=== PATIENT | male | born 1965 | race Caucasian/White ===

== ENCOUNTER 2019-06-30 00:20 | Observation (INO) | payer SELFPAY ==
[2019-06-30] MEDS ORDERED: cloNIDine 0.1 MG TAB ONE (00:48)
[2019-06-30 01:02] LABS: #Eosinphils 0.2 thou/uL (0.0-0.7); #Lymphocytes 2.2 thou/uL (1.20-3.40); #Monocytes 0.9 thou/uL (0.11-0.59); %Basophils 0.5 % (0.0-1.0); %Eosinophils 1.9 % (0.0-10.0); %Lymphocytes 26.8 % (21.0-51.0); %Monocytes 10.4 % (0.0-10.0); %Neutrophils 60.4 % (42.0-75.0); Hemoglobin 15.2 g/dL (14.0-18.0); Mean Corpuscular HGB CONC 33.7 g/dL (32.0-36.0); Mean Platelet Volume 6.6 fL (7.4-10.4); Platelet Count 115 thou/uL (130-400); RBC Distribution Width 13.4 % (11.5-14.5); Red Blood Cell (RBC) Count 4.46 mill/uL (4.70-6.10); White Blood Cell (WBC) Count 8.2 thou/uL (4.8-10.8)
[2019-06-30 01:13] LABS: ALT (SGPT) 55 U/L (8-55); AST (SGOT) 123 U/L (5-34); Albumin 3.5 g/dL (3.5-5.0); Alkaline Phosphatase 225 U/L (40-150); Anion Gap 13 mmol/L (10-20); BUN (Urea Nitrogen) 4 mg/dL (8.4-25.7); Bilirubin, Total 1.2 mg/dL (0.2-1.2); CK (CPK) 252 U/L (30-200); Calc. Creatinine Clearance 0 mL/min (70-130); Carbon Dioxide 24 mmol/L (22-29); Chloride 101 mmol/L (98-107); Estimated GFR-MDRD 88; Globulin 5.2 g/dL (2.4-3.5); Glucose 208 mg/dL (70-105); Potassium 3.5 mmol/L (3.5-5.1); Protein, Total 8.7 g/dL (6.0-8.3); Sodium 134 mmol/L (136-145)
[2019-06-30] MEDS ORDERED: hydrALAZINE 20 MG/ML VIAL ONE (01:42)
[2019-06-30] MEDS ORDERED: Lorazepam 2 MG/ML VIAL ONE (02:03)
--- NOTE | 2019-06-30 02:45 | PDOC.FPRHP ---
- History of Present Illness Chief Complaint: syncope History of Present Illness: Pt reports having episode of syncope today around 22:30. He was walking down the wells and passed out. Woke up on the ground. [place] dizzy and "something wasn' t right" prior to fall. + lightheaded. No N/V. Pt reports passing out previously 6 months ago, similar to this episode. Denies REED. Sometimes wakes up w/ REED in back of neck. Otherwise, he states being here because his blood pressure was high. He has been out of BP meds for past 6 months due to unemployment. Pt is heavy, every day drinker and his last drink was at 18:00. ED Course: Pt arrived to ED w/ BP 195/110. Given clonidine and hydralazine and BP was 162/ 92. Given 2L NS for tachycardia Ativan for anxiety. - Allergies/Adverse Reactions Allergies Allergy/AdvReac Type Severity Reaction Status Date / Time No Known Drug Allergies Allergy Verified 06/30/19 04:33 - Home Medications Medication Instructions Recorded Confirmed Type Atenolol 100 mg PO DAILY #30 tablet 06/30/19 Rx Lisinopril [Zestril] 10 mg PO DAILY #30 tab 06/30/19 Rx Comments: Normally takes: - Atenolol - Clonidine - Anti-depressants: stopped taking them 5 years ago. Stopped taking them because he started feeling better. - History PMHx - HTN - Eczema - Hx of pancreatitis 2008 - High cholesterol - Alcohol use disorder PSHx: - Pseudocyst removed via ex lap FHx: - Dad: stroke, HTN, psoriasis - Diabetes in extended family - Brain tumor: aunt - Uncle: "hardening of the lungs" Social: - Lives at home w/ fiance. 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 - Denies smoking. Chews tobacco. 1 can every 2 days, since age 13 - Alcohol: 8 beers per day, since age 18 - Drugs: denies - Review of Systems General: reports: weight/appetite/sleep changes (put on 20 lbs. recently, gets little sleep because of anxiety), other (subjective fever) Eyes: reports: vision changes (worse, wears reading glasses) ENT: reports: nasal congestion, other (nose bleeds last week) Respiratory: reports: congestion (all year long). denies: cough, shortness of breath Cardiovascular: reports: palpitation (occurs couple times per week, more since running out of BP). denies: chest pain, orthopnea Gastrointestinal: reports: constipation. denies: nausea, vomiting, diarrhea, GI bleeding Genitourinary: denies: dysuria, polyuria Skin: reports: rashes (eczema on lower limbs and back), jaundice (people say he has been yellow) Musculoskeletal: denies: pain Neurological: reports: syncope. denies: numbness, seizure Psychological: reports: anxiety, depression - Vital signs BP: 176/108 HR: 128 RR: 17 Tmax: 98.6 Pox: 98% on RA - Physical Exam Constitutional: NAD, awake, alert and oriented (times 4) HEENT: normocephalic and atraumatic, PERRLA, EOMI, no scleral icterus, grossly normal hearing, MMM, oropharynx clear -HEENT: conjunctiva injected b/l Neck: supple, trachea midline, no LAD -Neck: strong b/l carotid pulse Chest: no-tender to palpation Heart: normal S1/S2 (tachycardic), no murmurs/rubs/gallops, no edema Lungs: CTAB, no respiratory distress, no wheezing Abdomen: soft, non-tender, bowel sounds present (midline ex lap scar) Musculoskeletal: normal structure, ROM grossly normal Neurological: no focal deficit, CN II-XII intact, normal sensation -Skin: mild jaundice of upper extremities; very red in the face/neck/and shoulders, blanches; eczematous plaques possibly representing plaque psoriasis on lateral lower extremities b/l and knees b/l w/ excoriations from pt scratching -Heme/Lymphatic: small amount of petechiae over shins b/l Psychiatric: normal mood and affect, intact recent and remote memory FMR H&P: Results - Labs Result Diagrams: 06/30/19 00:47 06/30/19 07:04 Lab results: WBC 8.2 thou/uL (4.8-10.8) 06/30/19 00:47 Hgb 15.2 g/dL (14.0-18.0) 06/30/19 00:47 Hct 45.0 % (42.0-52.0) 06/30/19 00:47 MCV 101.0 fL (78.0-98.0) H 06/30/19 00:47 Plt Count 115 thou/uL (130-400) L 06/30/19 00:47 Neutrophils % 60.4 % (42.0-75.0) 06/30/19 00:47 Sodium 134 mmol/L (136-145) L 06/30/19 00:47 Potassium 3.5 mmol/L (3.5-5.1) 06/30/19 00:47 Chloride 101 mmol/L (98-107) 06/30/19 00:47 Carbon Dioxide 24 mmol/L (22-29) 06/30/19 00:47 BUN 4 mg/dL (8.4-25.7) L 06/30/19 00:47 Creatinine 0.90 mg/dL (0.7-1.3) 06/30/19 00:47 Glucose 208 mg/dL (70-105) H 06/30/19 00:47 Calcium 9.0 mg/dL (7.8-10.44) 06/30/19 00:47 Total Bilirubin 1.2 mg/dL (0.2-1.2) 06/30/19 00:47 AST 123 U/L (5-34) H 06/30/19 00:47 ALT 55 U/L (8-55) 06/30/19 00:47 Alkaline Phosphatase 225 U/L (40-150) H 06/30/19 00:47 Creatine Kinase 252 U/L (30-200) H 06/30/19 00:47 Serum Total Protein 8.7 g/dL (6.0-8.3) H 06/30/19 00:47 Albumin 3.5 g/dL (3.5-5.0) 06/30/19 00:47 - EKG Interpretation EKG: sinus tach - Radiology Interpretation Chest x-ray Status: image reviewed by me (neg to my eye) CT scan - head Status: image reviewed by me (neg to my eye) FMR H&P: A/P - Problem List (1) Syncope and collapse Current Visit: Yes Status: Acute Code(s): R55 - SYNCOPE AND COLLAPSE (2) Hypertensive urgency Current Visit: Yes Status: Acute Code(s): I16.0 - HYPERTENSIVE URGENCY (3) Tachycardia Current Visit: Yes Status: Acute Code(s): R00.0 - TACHYCARDIA, UNSPECIFIED (4) Depression with anxiety Current Visit: Yes Status: Chronic Code(s): F41.8 - OTHER SPECIFIED ANXIETY DISORDERS (5) Alcohol use disorder Current Visit: Yes Status: Chronic Code(s): RBL0733 - (6) Tobacco use disorder Current Visit: Yes Status: Chronic Code(s): F17.200 - NICOTINE DEPENDENCE, UNSPECIFIED, UNCOMPLICATED - Plan 53 to male admitted to telemetry for: Syncope: - Unclear as to cause of pt's syncope - Will pursue full syncope workup, especially since pt has not seen doctor in 6 months - Head CT w/o contrast - Carotid dopplers - ECHO - Orthostatic vital signs - Will rehydrate pt with banana bag bolus and MIVF following - Pt noted to have high glucose in serum and spilling glucose in urine. Will check A1C for possible new diabetes to assess if this might have contributed to his syncope. Hypertensive urgency 2/2 to hx of HTN and not taking medications recently: - pending final Head CT read to rule out head bleed or acute process, we will start HTN meds - pt very tachycardic so we will monitor on continuous telemetry - Initial troponin was 0.023. Will trend x2 - Initial CPK was 252, will trend. Alcohol use disorder Tobacco use disorder, chewing tobacco: - ASE protocol, last drink on 06/29 at 18:00 per pt - Ativan prn IV & PO based on ASE protocol - EtOH on admission 224. Depression & anxiety: - pt has been untreated but previously diagnosed w/ depression - we will monitor his mental status - case mgmt for Rx help on discharge - hope to have him follow up w/ PCP outpatient for chronic mgmt of depression Code: FULL VTE PPx: SCDs GI PPx: none Fluids: banana bag infusing Micky Barnes MD PGY1 Disposition/LOS: admit to telemetry as observation FMR H&P: Upper Level - Plan Date/Time: 06/30/19 0245 Syncope-ddx: orthostatic, cardiogenic, vasovagal, neurogenic -s/p syncopal episode and fall while intoxicated. -Will order a head CT to rule out a brain bleed. -suspect orthostatic vs cardiogenic -Will order orthostatics, and monitor on tele -am labs including cbc, bmp, mag, phosph -EKG showed sinus tach but no ischemic changes. Would consider an echo in the am as well to further evaluate for a cardiogenic etiology -does not appear to be a vasovagal episode, seizure related, or cva as there are no focal deficits Acute alcohol intoxication-will monitor on obs tele. ase protocol and valium/ ativan prn withdrawal sx. d/t fall, hd ct ordered, and banana bag ordered, but no current signs of wernike's encephalopathy at this time. UDS ordered Hypertensive Urgency -Hd CT w/o contrast pending -prn labetalol, hydralazine ordered Indeterminate troponins -episode of syncope, EKG with LAD, possible LAE and LVH -Will repeat an EKG since the second troponin increased -if third becomes high, would start theraputic lovenox -heart score of 5 -will order a stress test, NPO currently HTN -was on clonidine and atenolol in the past -would consider starting lisinopril -labetalol prn onboard currently Sinus tachycardia -suspect 2/2 hypovolemia, will bolus with a banana bag, followed by mIVF and monitor closely -consider CTA chest if no improvement, no LE swelling Hyperglycemia -hba1c ordered Transaminitis, elevated alk phosph -Hep c, HIV, RPR -ruq us Maite Henning MD, PGY-3 Addendum - Attending - Attending Attestation Date/Time: 06/30/19 1020 I personally evaluated the patient and discussed the management with Dr. Barnes and Milady. H&P repeated by me. I agree with the History, Examination, Assessment and Plan documented above with any addition or exceptions noted below. Mr. Sampson is a 53 y/o male with PMH of hypertension and alcohol abuse who has been off medications for 3-6 months due to loss of insurance presents when because he was found down by his son. Patient states he drank his normal amount of 8 beers yesterday (between noon and 6 pm). He was dizzy (described as feeling lightheaded-no vertigo). Denies chest pain, palpitations, dyspnea. Unsure of what happened. This am he states he feels like his normal self and wants to go home. HR 115-130, BP 170-180/90-100, O2 sat normal Heart- tachycardia, normal s1/s2, no m,g,r and no carotid bruits Abd- soft nt/nd Ext- no c/c/e EKG- sinus tachycardia with mild LAE, no ST changes Imaging reviewed. Hypertensive urgency- secondary to non-compliance- will restart his home atenolol and add lisinopril. Avoid clonidine secondary to rebound hypertension Sinus tachycardia- differential is hyperthyroidism, alcohol withdrawal, dehydration, or his normal baseline. Restart atenolol and call PCP to check on baseline hr. Continue IVF Questionable syncopal episode- most likely secondary to alcohol intoxication. CT head neg and carotid doppler with some plaque but no stenosis. Will also check ECHO. Tele shows sinus tachycardia without arrhythmia Elevated (indeterminate) troponin secondary to demand from hypertension and tachycardia- no EKG changes to suggest ischemia and patient without symptoms. Will trend one additional troponin. Alcohol abuse with acute intoxication- CM consult to help with outpatient resources. Cessation discussed with patient and he is not interested at this time. Depression/anxiety- will need outpatient follow-up to restart medications. Reevaluation this pm to see if HR and bp improved and stable for discharge.
[2019-06-30] MEDS ORDERED: Lorazepam 2 MG/ML VIAL SLOW IVP PRN (03:45)
[2019-06-30] MEDS ORDERED: Lorazepam 1 MG TAB PO PRN (03:46)
[2019-06-30 04:02] LABS: Bilirubin Negative (Negative); Blood, Urine Negative (Negative); Clarity Clear (Clear); Glucose, Urine (Dipstick) 150 mg/dL (Negative); Leukocyte Negative Leu/uL (Negative); Nitrite Negative (Negative); Protein, Urine (Dipstick) Negative (Neg-Trace); Urobilinogen Normal mg/dL (Less than 2)
[2019-06-30 04:04] LABS: Amphetamine Not Detected (NotDetected); Benzodiazepine Screen Not Detected (NotDetected); Cocaine Metabolite Screen Not Detected (NotDetected); Medtox Reader # READER 4; Methadone Not Detected (NotDetected); Methamphetamine Not Detected (NotDetected); Opiate Screen Not Detected (NotDetected); Phencyclidine (PCP) Not Detected (NotDetected); THC/Cannabinoid Screen Not Detected (NotDetected); Tricyclic Screen Not Detected (NotDetected)
[2019-06-30 04:05] LABS: Barbiturates Screen Not Detected (NotDetected); Medtox Control Line Valid? VALID (VALID); Oxycodone Screen Not Detected (NotDetected)
[2019-06-30 04:12] LABS: Troponin I 0.036 ng/mL (< 0.028)
[2019-06-30] MEDS ORDERED: Sodium Chloride 0.9% 1,000 ML IV SCH (04:15)
[2019-06-30] MEDS ORDERED: Multivitamins, Adult 10 ML, Folic Acid 1 MG, Thiamine HCl 100 MG in Dextrose 5 %-0.45 %... IV SCH ×2 (04:30→06:00)
[2019-06-30 04:43] VITALS: BMI 22.8
[2019-06-30 04:56] LABS: Magnesium 1.7 mg/dL (1.6-2.6); Phosphorus 2.4 mg/dL (2.3-4.7)
[2019-06-30] MEDS ORDERED: Labetalol HCl 100 MG/20 ML VIAL SLOW IVP PRN (04:59)
[2019-06-30] MEDS ORDERED: Diazepam 5 MG TAB PO SCH (05:00)
[2019-06-30] MEDS ORDERED: hydrALAZINE 20 MG/ML VIAL SLOW IVP PRN (05:01)
[2019-06-30] MEDS ORDERED: Diazepam 5 MG TAB PO PRN ×2 (05:17)
[2019-06-30 06:29] LABS: CKMB 3.2 ng/mL (0-6.6)
[2019-06-30 06:36] LABS: Hemoglobin A1c 5.7 % (4.0-6.0)
[2019-06-30] MEDS ORDERED: cloNIDine 0.1 MG TAB PO PRN (07:59)
[2019-06-30 08:00] LABS: Troponin I 0.042 ng/mL (< 0.028)
--- NOTE | 2019-06-30 08:05 | RAD ---
PORTABLE CHEST: INDICATION: Hypertension and tachycardia. Change in mental status with dizziness. FINDINGS: Lungs are clear. Heart and mediastinum appear normal. Vasculature is normal. IMPRESSION: Negative chest. POS: [facility]
--- NOTE | 2019-06-30 08:11 | CT ---
PRELIMINARY REPORT/[facility]/EMERGENCY AFTER HOURS PROCEDURE: PROCEDURE INFORMATION: Exam: CT Head Without Contrast Exam date and time: 06/30/2019 3:43 AM Clinical history: 53 years old, male; Dizziness; Patient HX: 53m presenting for evaluation of high bl ood pressure and tachycardia. PT reports his son found him on the ground at home. He reports he is un sure how he got there. PT reports having intermittent dizzy episodes over the last month TECHNIQUE: Imaging protocol: Computed tomography of the head without contrast. COMPARISON: No relevant prior studies available. FINDINGS: Brain: No hemorrhage. No mass effect. Patchy whitte matter hypodensities are nonspecific but may be s een in small vessel chronic ischemic changes. Ventricles: No ventriculomegaly. Bones/joints: No acute fracture. Sinuses: Scattered paranasal sinuses mucosal thickenning. Mastoid air cells: Visualized mastoid air cells are well aerated. Soft tissues: Unremarkable. IMPRESSION: No acute intracranial abnormality. Thank you for allowing us to participate in the care of your patient. Dictated and Authenticated by: Wendy Calixto MD 06/30/2019 4:09 AM Central Time ([place] & [place]) FINAL REPORT EMERGENCY AFTER HOURS CT BRAIN: Date: 06/30/19 FINDINGS/IMPRESSION: Final report is in agreement with the above provided preliminary interpretation from [facility]. No acute intracranial hemorrhage or mass effect. Chronic microvascular ischemic disease. POS: [facility]
[2019-06-30 09:04] LABS: ALT (SGPT) 48 U/L (8-55); AST (SGOT) 110 U/L (5-34); Albumin 3.3 g/dL (3.5-5.0); Alkaline Phosphatase 199 U/L (40-150); Anion Gap 14 mmol/L (10-20); BUN (Urea Nitrogen) 4 mg/dL (8.4-25.7); Bilirubin, Total 1.1 mg/dL (0.2-1.2); Calc. Creatinine Clearance 121 mL/min (70-130); Calcium 8.6 mg/dL (7.8-10.44); Carbon Dioxide 21 mmol/L (22-29); Chloride 102 mmol/L (98-107); Estimated GFR-MDRD Greater than 90; Globulin 4.7 g/dL (2.4-3.5); Glucose 173 mg/dL (70-105); Potassium 3.4 mmol/L (3.5-5.1); Sodium 134 mmol/L (136-145)
[2019-06-30] MEDS ORDERED: Potassium Chloride 20 MEQ TAB PO SCH (09:30)
[2019-06-30] MEDS ORDERED: Lisinopril 10 MG TAB PO SCH (10:15)
[2019-06-30] MEDS ORDERED: cloNIDine 0.1 MG TAB PO SCH ×2 (10:15→21:00)
--- NOTE | 2019-06-30 10:17 | ULT ---
CAROTID DOPPLER: Ultrasound Doppler study is performed of the extracranial carotid arteries. Color Doppler with spect ral analysis and velocity recordings obtained. INDICATION: Syncope. FINDINGS: Ultrasound images show echogenic plaque in both bulbs and proximal ICAs. Velocity recordings show no evidence of increased velocity in either internal carotid artery. Verteb ral arteries show antegrade flow. IMPRESSION: 1. Mild to moderate echogenic plaque with intimal wall thickening measured with ultrasound. 2. No evidence of hemodynamically significant stenosis identified in either internal carotid artery. POS: [place]
[2019-06-30] MEDS: Sodium Chloride 0.9% 1,000 ML IV SCH ×2 (10:30→18:00)
[2019-06-30] MEDS ORDERED: Atenolol 25 MG TAB PO SCH (10:30)
[2019-06-30 16:03] VITALS: BP 150/83; TEMP 100
[2019-07-01] MEDS ORDERED: Atenolol 50 MG TAB PO SCH (09:00)
[2019-07-01] MEDS ORDERED: Diazepam 5 MG TAB PO SCH (09:00)
[2019-07-01] MEDS ORDERED: Lisinopril 10 MG TAB PO SCH (09:00)
--- NOTE | 2019-07-01 13:38 | EKG ---
Test Reason : EMERGENCY EXAM Blood Pressure : / mmHG Vent. Rate : 122 BPM Atrial Rate : 122 BPM P-R Int : 126 ms QRS Dur : 092 ms QT Int : 324 ms P-R-T Axes : 076 -13 052 degrees QTc Int : 461 ms Sinus tachycardia Otherwise normal ECG Confirmed by GANESH PINO ([id number]), senior technical editor JONAH MILLER ([id number]) on 07/01/2019 1:37:47 PM Referred By: Confirmed By:GANESH PINO
--- NOTE | 2019-07-02 22:32 | DIS ---
DATE OF ADMISSION: 06/30/2019 DATE OF DISCHARGE: 06/30/2019 RESIDENT: Bryan Agrawal MD. CONSULTS: None. PROCEDURES: 1. On 06/30/2019, chest x-ray, impression, negative chest x-ray. 2. On 06/30/2019, brain CT unremarkable. 3. On 06/30/2019, carotid Doppler study, [id number] echogenic plaque with intimal wall thickening measured with ultrasound. No evidence of hemodynamically significant stenosis identified in either carotid artery. 4. On 06/30/2019, echocardiogram, impression, ejection fraction is 60% to 65%, normal right ventricular size and function. Left atrium is mildly dilated. Normal right atrium size. Trace mitral regurgitation is present. Structurally normal aortic valve. Trace tricuspid regurgitation. Mild pulmonic regurgitation is present. DISCHARGE MEDICATIONS: 1. Lisinopril 10 mg p.o. daily. 2. Atenolol 100 mg p.o. daily. Discontinued medications, clonidine 0.1 mg p.o. b.i.d. p.r.n. PRIMARY DIAGNOSIS: Syncope secondary to alcohol intoxication. SECONDARY DIAGNOSES: Hypertensive urgency, hypertension, alcohol use disorder, tobacco use, depression, anxiety. HISTORY OF PRESENT ILLNESS AND HOSPITAL COURSE: This is a 53-year-old male, with history of alcohol abuse, who presented to the ER after a syncopal episode while intoxicated on alcohol. The patient was admitted for workup of syncope and to rule out other potential cardiogenic or neurogenic causes. Imaging studies were done as listed above, which were all negative and the patient was discharged home, was counselled to see primary care physician about discontinuing his alcohol use. Hospital stay was also significant for hypertensive urgency secondary to medication noncompliance as the patient cannot afford medications. Home atenolol was restarted and the patient was also placed on lisinopril and taken off home clonidine. Blood pressures were controlled as was his heart rate. Prescriptions were sent to [facility] as they are on the 4 dollar list and the patient was discharged home. DISPOSITION: Stable. DISCHARGE INSTRUCTIONS: 1. Location, home. 2. Diet; low-sodium, healthy heart. 3. Activity, as tolerated. 4. Follow up with Dr. Downey in 7 days. Job ID: [id number]
== END 2019-06-30 17:56 | disposition home or self-care (01) ==
LOC: ERS 00:20 → 2SW 02:50
PROVIDERS: ADMIT Family Medicine; ATTEND Family Medicine
DX: F10.129 Alcohol abuse with intoxication, unspecified (principal); R55 Syncope and collapse; I16.0 Hypertensive urgency; I10 Essential (primary) hypertension; E78.00 Pure hypercholesterolemia, unspecified; F17.220 Nicotine dependence, chewing tobacco, uncomplicated; F41.8 Other specified anxiety disorders; F32.9 Major depressive disorder, single episode, unspecified; R73.9 Hyperglycemia, unspecified; R74.0 Nonspecific elevation of levels of transaminase and lactic acid dehydrogenase [LDH]; R00.0 Tachycardia, unspecified; Z79.899 Other long term (current) drug therapy; Z91.14 Patient's other noncompliance with medication regimen
CPT/HCPCS: 36415; 36416; 70450; 71045; 80053; 80306; 80307; 81003; 82550; 82553; 83036; 83735; 84100; 84443; 84484; 85025; 93005; 93010; 93306; 93880; 96361; 96365; 96366; 96374; 96375; 96376; G0378; J0360; J2060; J3411; J7042

== ENCOUNTER 2020-05-06 20:17 | Inpatient (IN) | payer OTHER, SELFPAY ==
[2020-05-06 21:49] LABS: Band 1 % (5-11); Hemoglobin 14.7 g/dL (14.0-18.0); Lymphocytes 22 % (21-51); MDiff Complete? YES; Mean Corpuscular HGB CONC 32.7 g/dL (32.0-36.0); Mean Corpuscular Hemoglobin 33.5 pg (27.0-31.0); Mean Platelet Volume 6.3 fL (7.4-10.4); Monocytes 17 % (0-10); Neutrophil 60 % (42-75); Platelet Count 144 thou/uL (130-400); Platelet Morphology Comment Appears Adequate; RBC Distribution Width 13.1 % (11.5-14.5); Red Blood Cell (RBC) Count 4.38 mill/uL (4.70-6.10); White Blood Cell (WBC) Count 8.6 thou/uL (4.8-10.8)
[2020-05-06 22:03] LABS: Bacteria/HPF None Seen HPF (None Seen); Bilirubin Negative (Negative); Blood, Urine Trace (Negative); Clarity Clear (Clear); Glucose, Urine (Dipstick) Normal (Negative); Ketone, Urine 10 mg/dL (Negative); Leukocyte Negative Leu/uL (Negative); Nitrite Negative (Negative); Protein, Urine (Dipstick) 20 mg/dL (Neg-Trace); RBC/HPF 0-3 HPF (0-3); Squamous Epithelial 0-3 HPF (0-3); Urobilinogen Normal mg/dL (Less than 2); WBC/HPF 0-3 HPF (0-3)
[2020-05-06 22:05] LABS: ALT (SGPT) 85 U/L (8-55); AST (SGOT) 112 U/L (5-34); Albumin 3.7 g/dL (3.5-5.0); Alkaline Phosphatase 180 U/L (40-110); Anion Gap 15 mmol/L (10-20); BUN (Urea Nitrogen) 17 mg/dL (8.4-25.7); Bilirubin, Total 1.2 mg/dL (0.2-1.2); Calc. Creatinine Clearance 0 mL/min (70-130); Carbon Dioxide 28 mmol/L (22-29); Chloride 99 mmol/L (98-107); Estimated GFR-MDRD Greater than 90; Globulin 4.7 g/dL (2.4-3.5); Glucose 133 mg/dL (70-105); Lipase 21 U/L (8-78); Potassium 3.6 mmol/L (3.5-5.1); Protein, Total 8.4 g/dL (6.0-8.3); Sodium 138 mmol/L (136-145)
--- NOTE | 2020-05-06 23:25 | PDOC.FPRHP ---
- History of Present Illness Chief Complaint: hematemesis History of Present Illness: Patient is a 54 yo male who presents to the ED due to hematemsis that started around 0800 yesterday morning. Patient notes he vomited bloody emesis ( sometimes red and sometimes black) 5 times throughout the day, noting he had some accompanying light-headedness, and generalized weakness later in the day. He also notes melana during the day, with normal BMs, noting bright red blood on the toilet paper when he wiped. Patient states that he has a hx of ETOH abuse , noting he has been drinking 8 beers/day x 30 years, noting he drank 8 beers the previous day. He notes he had a similar experience with hematemesis 10 years ago and was dx with pancreatitis and had a pseudocyst the size of a fist surgically removed. Patient endorses chills but denies fever, CP, SOB, abdominal pain. ED Course: On arrival to the ED he was noted to be tachy in the 120s and hypertensive. His workup was notable for slightly elevated LFTs and a positive FOBT. He was given 40mg IV protonix, 4mg IV Zofran & 1L of NS before moving to the floor - Allergies/Adverse Reactions Allergies Allergy/AdvReac Type Severity Reaction Status Date / Time No Known Drug Allergies Allergy Verified 06/30/19 04:33 - Home Medications Medication Instructions Recorded Confirmed Type Atenolol 100 mg PO DAILY #30 tablet 06/30/19 Rx Lisinopril [Zestril] 10 mg PO DAILY #30 tab 06/30/19 Rx Pantoprazole [Protonix] 40 mg PO BID 30 Days #60 tab 05/08/20 Rx - History PMHx: Hx of Pancreatitis w/ Pseudocyst removal, HLD, HTN, ETOH abuse PSHx: Pseudocyst removal FHx: noncontributory Social: drinks 8 beers/day x 30 years, no smoking or illicit recreational drugs - Review of Systems General: reports: other (denies fever, + chills). denies: weight/appetite/ sleep changes Eyes: denies: eye pain, vision changes ENT: denies: nasal congestion, rhinorrhea Respiratory: denies: cough, shortness of breath Cardiovascular: denies: chest pain, edema Gastrointestinal: reports: nausea, vomiting, GI bleeding (hematemesis, melena). denies: diarrhea, constipation Genitourinary: denies: incontinence, dysuria Skin: denies: rashes, lesions Musculoskeletal: denies: pain, tenderness Neurological: denies: numbness, syncope Psychological: denies: anxiety, depression - Vital signs BP: 165/97, Pulse: 94, Resp: 14, Temp: 98.9 (Oral), O2 sat: 98 on (Room Air), Wt : 64.41kg - Physical Exam Constitutional: NAD, awake, alert and oriented HEENT: normocephalic and atraumatic, other (conjunctival injection b/l) Neck: supple, FROM Chest: no-tender to palpation Heart: no murmurs/rubs/gallops, other (tachycardic) Lungs: CTAB, no respiratory distress Abdomen: soft, non-tender, bowel sounds present Musculoskeletal: normal structure, normal tone Neurological: normal sensation, other (tremulous, nystagmus on exam) Skin: no rash/lesions, good turgor Heme/Lymphatic: no unusual bruising or bleeding, no purpura Psychiatric: normal mood and affect, good judgment and insight, intact recent and remote memory FMR H&P: Results - Labs Result Diagrams: 05/08/20 07:50 05/08/20 07:50 Lab results: WBC 8.6 thou/uL (4.8-10.8) 05/06/20 21:28 Hgb 14.7 g/dL (14.0-18.0) 05/06/20 21:28 Hct 44.8 % (42.0-52.0) 05/06/20 21:28 MCV 102.0 fL (78.0-98.0) H 05/06/20 21:28 Plt Count 144 thou/uL (130-400) 05/06/20 21:28 Band Neuts % (Manual) 1 % (5-11) L 05/06/20 21:28 Sodium 138 mmol/L (136-145) 05/06/20 21:28 Potassium 3.6 mmol/L (3.5-5.1) 05/06/20 21:28 Chloride 99 mmol/L (98-107) 05/06/20 21:28 Carbon Dioxide 28 mmol/L (22-29) 05/06/20 21:28 BUN 17 mg/dL (8.4-25.7) 05/06/20 21: Creatinine 0.70 mg/dL (0.7-1.3) 05/06/20 21: Glucose 133 mg/dL (70-105) H 05/06/20 21:28 Calcium 9.0 mg/dL (7.8-10.44) 05/06/20 21: Total Bilirubin 1.2 mg/dL (0.2-1.2) 05/06/20 21:28 AST 112 U/L (5-34) H 05/06/20 21:28 ALT 85 U/L (8-55) H 05/06/20 21:28 Alkaline Phosphatase 180 U/L (40-110) H 05/06/20 21: Serum Total Protein 8.4 g/dL (6.0-8.3) H 05/06/20 21: Albumin 3.7 g/dL (3.5-5.0) 05/06/20 21: Lipase 21 U/L (8-78) 05/06/20 21:28 Urine Ketones 10 mg/dL (Negative) A 05/06/20 21:07 Urine Blood Trace (Negative) A 05/06/20 21:07 Urine Nitrite Negative (Negative) 05/06/20 21:07 Ur Leukocyte Esterase Negative Sobia/uL (Negative) 05/06/20 21:07 Urine RBC 0-3 HPF (0-3) 05/06/20 21:07 Urine WBC 0-3 HPF (0-3) 05/06/20 21:07 Ur Squamous Epith Cells 0-3 HPF (0-3) 05/06/20 21:07 Urine Bacteria None Seen HPF (None Seen) 05/06/20 21:07 - EKG Interpretation EKG: None performed or found. FMR H&P: A/P - Problem List (1) Hematemesis Status: Acute Code(s): K92.0 - HEMATEMESIS (2) HTN (hypertension) Status: Acute Code(s): I10 - ESSENTIAL (PRIMARY) HYPERTENSION (3) Melena Status: Acute Code(s): K92.1 - MELENA (4) Alcohol use disorder Status: Chronic Code(s): HAF5788 - - Plan 1. Hematemesis likely 2/2 ETOH abuse Hb 14.7, amylase/lipase wnl Received 1 bolus NS and 40mg IV push pantoprazole in ED - NPO in anticipation of a likely endoscopic evaluation with GI tomorrow - will start LR @125 - will schedule 40mg IV push pantoprazole BID in the am - cardiac monitoring - q4hr vitals - morning CBC 2. Melena, likely d/t upper GI bleed - see above, started fluids and PPI - will monitor H/H 3. ETOH Abuse - ASE protocol initiated - serum ETOH level - diazepam q6hr prn for withdrawal sxs - morning CMP 4. HTN - labetalol prn for SBP >180, patient is NPO - q4hr vitals 5. Hx Pancreatitis with pseudocyst amylase and lipase wnl - morning CMP - will continue to monitor Dispo: inpatient medical LOS expected at least 1-2 days DVT PPx: none d/t bleed Code: Full PCP: Shayan Castelan have discussed this patient with Dr. Sharma FMR H&P: Upper Level - Plan Date/Time: 05/06/205 IDebra, have evaluated this patient and agree with findings/plan as outlined by chemical engineering intern resident. Pertinent changes/additions are listed here. 54YOM with a PMH notable for HTN and heavy QD EtOH abuse who presented to the ED due to reported hematemesis and melanotic stool at home that started the AM of the date of presentation. Per the patient shortly after waking up in the AM he began to have episodes of bloody vomitus, some of which were bright red and others which were coffee ground. He reported ~5 episodes over the course of the day [employer]. In addition, he reported multiple black BMs that also began earlier in the day. He denied any associated abdominal pain, fever/chills, chest pain or SOB. On arrival to the ED he was noted to be tachy in the 120s and hypertensive. His workup was notable for slightly elevated LFTs and a positive FOBT. He was given 40mg IV protonix, 4mg IV Zofran & 1L of NS before moving to the floor. On exam his tachycardia had slightly improved but he was tremulous, especially with movement. He also had horizontal nystagmus but his abdomen was non-TTP. He was therefore admitted for a suspected acute upper GI bleed likely 2 /2 chronic heavy EtOH use. For his GI bleed, IV protonix was continued and he was kept NPO in anticipation of a likely endoscopic evaluation with GI tomorrow. He was continued on mIVFs while NPO. Regarding his EtOH use, a serum EtOH level was ordered but he was also started on ASE protocol and given 5mg IV diazepam before being moved to the floor and this was continued PRN Q6H for withdrawal symptoms. Regarding his HTN, PRN labetalol was added to be given for SBP>180 while NPO. Anticipated LOS > 2 midnights pending clinical course. Addendum - Attending - Attending Attestation Date/Time: 05/06/20 1833 I personally evaluated the patient and discussed the management with Dr. Perkins and Dr. Hartman I agree with the History, Examination, Assessment and Plan documented above with any addition or exceptions noted below. 54 yo male with current alcohol abuse presents with hematemesis and melena. Associated with epigastric pain and nausea. Last drink yesterday. Now with diaphoresis, anxiety, and shaking. CT with concern for petic ulcer disease. - Admit to tele due to VS instability. H&H reassuring. No evidence of current bleeding. GI in AM. NPO. Start IVFs. Start PPI drip. Add carafate overnight to help with current pain. Unsure NSAID use but denies continuous. - 8 drinks per day reported. Start valium leandro. Monitor closely. - Concern also present for gallbladder disease. RUQ us ordered. Add antibiotics as indicated. Gen surg as needed. - Monitor chronic conditions and adjust home meds as indicated. Renita
[2020-05-06] MEDS ORDERED: Pantoprazole 40 MG VIAL ONE (23:39)
[2020-05-06] MEDS ORDERED: Ondansetron PF 4 MG/2 ML Vial ONE (23:39)
[2020-05-07] MEDS ORDERED: Ondansetron ODT 4 MG TAB PO PRN (00:11)
[2020-05-07] MEDS ORDERED: Diazepam 5 MG TAB ONE (00:35)
[2020-05-07] MEDS ORDERED: Sodium Chloride 0.9% (PF) 10 ML VIAL FS PRN (00:43)
[2020-05-07] MEDS ORDERED: Diazepam 10 MG/2 ML SYRINGE IVP SCH ×3 (01:00→13:00)
[2020-05-07] MEDS ORDERED: Thiamine HCl 200 MG/2 ML VIAL IM SCH ×2 (01:00→14:45)
[2020-05-07] MEDS: Lactated Ringer's 1,000 ML IV SCH ×3 (03:54→20:14)
[2020-05-07 04:05] VITALS: BMI 19.9
[2020-05-07] MEDS ORDERED: Labetalol HCl 100 MG/20 ML VIAL SLOW IVP PRN (05:06)
[2020-05-07 05:23] LABS: ALT (SGPT) 64 U/L (8-55); AST (SGOT) 83 U/L (5-34); Albumin 3.1 g/dL (3.5-5.0); Alkaline Phosphatase 138 U/L (40-110); Anion Gap 11 mmol/L (10-20); BUN (Urea Nitrogen) 14 mg/dL (8.4-25.7); Bilirubin, Total 1.1 mg/dL (0.2-1.2); Calc. Creatinine Clearance 106 mL/min (70-130); Calcium 8.5 mg/dL (7.8-10.44); Carbon Dioxide 27 mmol/L (22-29); Chloride 105 mmol/L (98-107); Estimated GFR-MDRD Greater than 90; Globulin 3.7 g/dL (2.4-3.5); Glucose 116 mg/dL (70-105); Potassium 4.1 mmol/L (3.5-5.1); Protein, Total 6.8 g/dL (6.0-8.3); Sodium 139 mmol/L (136-145)
[2020-05-07] MEDS: Diazepam 10 MG/2 ML SYRINGE IVP SCH ×4 (06:01→21:25)
[2020-05-07 06:36] LABS: #Lymphocytes 1.3 thou/uL (1.20-3.40); #Monocytes 0.9 thou/uL (0.11-0.59); #Neutrophils 5.1 thou/uL (1.40-6.50); %Basophils 0.6 % (0.0-1.0); %Eosinophils 0.6 % (0.0-10.0); %Lymphocytes 17.8 % (21.0-51.0); %Monocytes 12.7 % (0.0-10.0); %Neutrophils 68.3 % (42.0-75.0); Mean Corpuscular HGB CONC 32.3 g/dL (32.0-36.0); Mean Corpuscular Hemoglobin 32.9 pg (27.0-31.0); Mean Platelet Volume 6.5 fL (7.4-10.4); Platelet Count 102 thou/uL (130-400); RBC Distribution Width 13.2 % (11.5-14.5); Red Blood Cell (RBC) Count 3.65 mill/uL (4.70-6.10); White Blood Cell (WBC) Count 7.4 thou/uL (4.8-10.8)
[2020-05-07] MEDS: Folic Acid 1 MG TAB PO SCH ×2 (07:54→07:57)
[2020-05-07] MEDS: Multivitamin W/ Minerals 1 TAB PO SCH ×2 (07:54→07:57)
[2020-05-07] MEDS: Pantoprazole 40 MG VIAL IVP SCH ×2 (07:55→21:25)
[2020-05-07 12:28] LABS: SARS-CoV-2 MS2 Positive; SARS-CoV-2 N Gene Negative; SARS-CoV-2 S Gene Negative; SARS-CoV-2 by NAA Not Detected (NotDetected); SARS-CoV-2 orf1ab Negative
--- NOTE | 2020-05-07 13:13 | PDOC.FM ---
- Subjective Subjective: Patient denies vomiting since being admitted. He reports dizziness upon standing , sweating and intermittent shaking. He denies nausea, headache, visual hallucinations or auditory hallucinations. He reports a previous upper GI bleed 11 years ago related to alcohol use. At that time, an EGD and colonoscopy were completed. Patient does not remember the results. - Objective MAR Reviewed: Yes Vital Signs & Weight: Vital Signs (12 hours) Temp Pulse Resp BP BP Pulse Ox 05/07/20 07:50 98.3 F 87 20 177/99 H 177/99 H 96 05/07/20 04:00 96 05/07/20 03:48 98 F 98 13 172/92 H 99 05/07/20 03:02 98.8 F 99 18 172/93 H 96 Weight Weight 61.235 kg Result Diagrams: 05/07/20 06:22 05/07/20 04:26 Phys Exam - Physical Examination Constitutional: NAD HEENT: moist MMs, sclera anicteric Neck: supple, full ROM Respiratory: no wheezing, clear to auscultation bilateral Cardiovascular: RRR, no significant murmur Gastrointestinal: soft, non-tender, no distention, positive bowel sounds Musculoskeletal: no edema, pulses present Neurological: non-focal, moves all 4 limbs Lymphatic: no nodes Psychiatric: normal affect, A&O x 3 Skin: no rash, normal turgor Dx/Plan - Plan Plan: 1. Hematemesis 2/2 ETOH abuse H/H were 12/37.2. Amylase/lipase WNL. Reports history of similar episode 11 years ago related to alcohol use. Dr. Hylton, GI, was consulted. COVID swab negative. -Clear liquid diet. NPO at midnight. -Continue LR at 125 -Continue pantoprazole IV BID -Q4hr vitals -Daily CBC/BMP 2. Melena, likely due to upper GI bleed Patient reports history of similar episode. Colonoscopy done at that time, results unknown. - Management per above 3. ETOH Abuse Patient reports drinking 8 beers per day. Last drink was 2 days ago. ETOH level < 10. - ASE protocol initiated - Diazepam 5mg Q4H scheduled, will switch to PRN tonight 4. HTN BP 170s/90s. - labetalol prn for SBP >180 - Restart home lisinopril 5. Hx Pancreatitis with pseudocyst Amylase and lipase wnl - Monitor DVT PPx: none d/t bleed Code: Full PCP: Shayan Disposition: Home pending stable H/H without recurrence of hematemesis
--- NOTE | 2020-05-07 13:36 | PRG ---
DATE OF SERVICE: 05/07/2020 Mr. Sampson is a 54-year-old man, who has a history of heavy ethanol abuse. He presented to our emergency room, was vomiting up of bright red and dark blood. He also had dark stools and blood per rectum. His last drink was just over 48 hours ago. He appears a bit "shaky." He was also tachy with hypertension and we are treating him for possible early DTs and alcohol withdrawal with high doses of benzodiazepines. He is alert and cooperative, though "shaky." Laboratory data thus far, on admission, his hemoglobin was 14.7 and is now 12 with hematocrit of 37.2. His MCV is 102, likely due to the alcohol. Chemistries; sodium is 139, potassium 4.1, chloride 105, bicarb 27, BUN 14, and creatinine 0.69. His liver enzymes are elevated, AST of 112, ALT of 85, alkaline phosphatase is 180, total bilirubin is 1.2. His albumin initially was 3.7, it is now 3.1. We will continue to monitor him closely and consult GI for endoscopy. Job ID: [id number]
[2020-05-07 13:50] LABS: Syphilis Antibody Nonreactive (Nonreactive); Syphilis Antibody Index 0.07 S/CO (<1.00 Non-Reactive)
[2020-05-07 13:54] LABS: HBCM Index 0.11 S/CO (0-0.79); HBSAg Index 0.14 S/CO (0-0.99); HIV (1/2) Antibody/Antigen Non-Reactive (NonReactive); HIV 1/2 INDEX 0.34 S/CO (<1.00); Hep A IgM AB Non-Reactive (NonReactive); Hep B Surf Ag Non-Reactive S/CO (NonReactive); Hep C IgG Ab Non-Reactive (NonReactive); Hep C Index 0.24 S/CO (0-0.79); Hepatitis B Core IgM Abs Non-Reactive (NonReactive)
[2020-05-07] MEDS ORDERED: Diazepam 5 MG TAB PO PRN (14:43)
[2020-05-07] MEDS ORDERED: Diazepam 5 MG TAB PO SCH (14:45)
[2020-05-07] MEDS ORDERED: Lisinopril 10 MG TAB PO SCH (16:42)
--- NOTE | 2020-05-07 16:44 | ULT ---
GALLBLADDER ULTRASOUND: 05/07/20 HISTORY: Exam requested to evaluate liver. FINDINGS: The liver demonstrates increased echogenicity consistent with fatty infiltration and no focal mass or intrahepatic ductal dilatation. No gallstones, gallbladder wall thickening or pericholecystic fluid is seen. The right kidney and visualized portions of the pancreas are unremarkable. No free fluid is seen. The common duct measures 5 mm in diameter. IMPRESSION: 1. Fatty liver. 2. No evidence of cholelithiasis. POS: OFF
[2020-05-07] MEDS ORDERED: Diazepam 10 MG/2 ML SYRINGE IVP PRN (21:00)
--- NOTE | 2020-05-08 01:22 | CON ---
DATE OF CONSULTATION: 05/07/2020 REASON FOR CONSULTATION: Coffee-grounds emesis. HISTORY OF PRESENT ILLNESS: Mr. Sampson is a 54-year-old male who was admitted by the [facility] with the above complaint. The patient has a long history of alcohol abuse, drinking up to 10 beers a day for many years. Yesterday, he noted onset of coffee-grounds emesis that described as vomiting black coffee-ground material. He has had sporadic episodes throughout the day. He denies having any abdominal pain or discomfort. He did have an episode of melenic stools last night. Since admission today, he has not had any further nausea, vomiting , or coffee-grounds emesis. He does feel weak and somewhat lightheaded. The patient denies having had any previous gastrointestinal bleeding before. He does not have any NSAID usage. Currently, he is hemodynamically stable with a hemoglobin of 12.0 g/dL earlier this morning, which is down from 14.7 before hydration. Currently , he shows signs of alcohol withdrawal and has been on Valium every 4 hours. He denies having any other complaint currently. PAST MEDICAL HISTORY: 1. Pancreatitis many years ago, reportedly had pseudocyst drainage. 2. Hypertension. 3. Hyperlipidemia. 4. Alcohol abuse. 5. History of admission for syncope thought to be related to alcohol intoxication last year. ALLERGIES: NO KNOWN DRUG ALLERGY. MEDICATIONS: At home include: 1. Lisinopril 10 mg daily. 2. Atenolol 100 mg daily. SOCIAL HISTORY: The patient lives with his son, consumes up to 10 beers a day for many years. He denies any tobacco or alcohol usage. No illicit drug use. FAMILY HISTORY: Negative for any known GI problem, liver disease, or GI malignancy. REVIEW OF SYSTEMS: Ten-point review of system did not show any other reported symptoms. No other pertinent negatives or positives. PHYSICAL EXAMINATION: VITAL SIGNS: Temperature is 98.5, blood pressure 157/88, and pulse of 104. GENERAL: He is alert, somewhat shaky, but lucid and oriented. HEENT: Shows anicteric sclerae. Oropharynx is clear and moist. NECK: Supple. CV: Shows normal S1 and S2. Regular rate and rhythm. CHEST: Shows a breath sounds. ABDOMEN: Soft without any distention. No tympany. He has active bowel sounds. No hepatosplenomegaly. EXTREMITIES: Show dark skin, but without any edema. IMAGING STUDIES: Abdominal ultrasound showed fatty infiltration of the liver. Gallbladder is normal without gallstones. No ascites or any other abnormalities seen. LABORATORY DATA: WBC 7.4, hemoglobin 12.0, and platelet count of 102. INR of 1.0. Electrolytes within normal range. Creatinine is 0.69, BUN of 14. His bilirubin is 1.1, AST of 83, ALT of 64, alkaline phosphatase 138, albumin of 3.1, lipase of 21. GGT is 2177. Hepatitis A, B, and C serology came back negative. ASSESSMENT: 1. Evidence of limited upper gastrointestinal bleed characterized as mostly coffee-grounds emesis and one episode of melenic stool last night. The patient has no further coffee-grounds emesis since admission. His current hemoglobin is 12.0 g/dL. Bleeding is suspected to be from upper source, differential include peptic ulcer disease and less likely Cynthia-Walsh tear or esophageal/gastric varices. 2. Alcohol abuse, showing signs of mild withdrawals presently. 3. Alcoholic liver disease with elevation of AST greater than ALT and elevated GGT. No physical stigmata of cirrhosis. Ultrasound is otherwise normal except for steatohepatitis likely from alcohol. 4. Hypertension. RECOMMENDATIONS: 1. Continue with pantoprazole 40 mg q.12. 2. Continue to monitor clinically and trend his blood count. 3. We will set up endoscopy in a.m. Job ID: [id number] [facility]
[2020-05-08] MEDS: Lactated Ringer's 1,000 ML IV SCH (03:35)
[2020-05-08] MEDS ORDERED: Diazepam 5 MG TAB PO PRN (04:00)
--- NOTE | 2020-05-08 07:13 | PDOC.FM ---
- Subjective Subjective: Patient denies headache, vision changes, sweating, shaking or visual/auditory hallucinations. He states that he no longer requires valium. He denies nausea, vomiting, abdominal pain or melena. - Objective MAR Reviewed: Yes Vital Signs & Weight: Vital Signs (12 hours) Temp Pulse Resp BP BP Pulse Ox 05/08/20 04:00 146/79 H 05/08/20 03:36 98 F 88 16 146/79 H 96 05/07/20 21:02 98.7 F 101 H 16 142/81 H 96 Weight Weight 61.235 kg I&O: 05/07/20 05/08/20 05/09/20 06:59 06:59 06:59 Intake Total 2400 Balance 2400 Result Diagrams: 05/08/20 07:50 05/08/20 07:50 Phys Exam - Physical Examination Constitutional: NAD HEENT: moist MMs, sclera anicteric Neck: supple, full ROM Respiratory: no wheezing, clear to auscultation bilateral Cardiovascular: RRR, no significant murmur Gastrointestinal: soft, non-tender, no distention, positive bowel sounds Musculoskeletal: no edema, pulses present Neurological: non-focal, moves all 4 limbs Lymphatic: no nodes Psychiatric: normal affect, A&O x 3 Skin: no rash, normal turgor Dx/Plan - Plan Plan: 1. Hematemesis 2/2 peptic ulcer vs. ETOH abuse Hemoglobin was 14.7->12.0->11.5. Reports history of similar episode 11 years ago related to alcohol use. Dr. Hlyton, GI, was consulted. COVID swab negative. -F/u endoscopy report -F/u GI recs -Continue LR at 125 -Continue pantoprazole IV BID -Q4hr vitals -Daily CBC/CMP 2. Melena, likely due to upper GI bleed Patient reports history of similar episode. Colonoscopy done at that time, results unknown. - Management per above 3. ETOH Abuse Patient reports drinking 8 beers per day. Last drink was 2 days ago. ETOH level < 10. Symptoms greatly improved. - ASE protocol initiated - Diazepam 5mg Q4H PRN 4. HTN BP 140-150s/80s. - labetalol prn for SBP >180 - Continue home lisinopril 5. Hx Pancreatitis with pseudocyst Amylase and lipase wnl - Monitor 6. Steatohepatitis Cause likely due to chronic ETOH use. AST/ALT were 86/64. RUQ US showed steatohepatitis. - Monitor DVT PPx: none d/t bleed Code: Full PCP: Shayan Disposition: Stable for discharge home pending GI recommendations
[2020-05-08] MEDS ORDERED: Midazolam HCl 2 mg/2 ml Vial ONE (07:54)
[2020-05-08 08:08] LABS: #Eosinphils 0.1 thou/uL (0.0-0.7); #Lymphocytes 1.4 thou/uL (1.20-3.40); #Monocytes 0.8 thou/uL (0.11-0.59); #Neutrophils 3.6 thou/uL (1.40-6.50); %Basophils 0.5 % (0.0-1.0); %Eosinophils 1.7 % (0.0-10.0); %Lymphocytes 23.9 % (21.0-51.0); %Monocytes 13.6 % (0.0-10.0); %Neutrophils 60.4 % (42.0-75.0); Hemoglobin 11.5 g/dL (14.0-18.0); Mean Corpuscular HGB CONC 33.4 g/dL (32.0-36.0); Mean Corpuscular Hemoglobin 34.8 pg (27.0-31.0); Mean Platelet Volume 6.3 fL (7.4-10.4); Platelet Count 79 thou/uL (130-400); RBC Distribution Width 13.2 % (11.5-14.5); White Blood Cell (WBC) Count 5.9 thou/uL (4.8-10.8)
[2020-05-08 08:22] LABS: ALT (SGPT) 61 U/L (8-55); AST (SGOT) 92 U/L (5-34); Albumin 2.9 g/dL (3.5-5.0); Alkaline Phosphatase 127 U/L (40-110); Anion Gap 7 mmol/L (10-20); BUN (Urea Nitrogen) 16 mg/dL (8.4-25.7); Bilirubin, Total 2.3 mg/dL (0.2-1.2); Calc. Creatinine Clearance 100 mL/min (70-130); Calcium 8.7 mg/dL (7.8-10.44); Carbon Dioxide 29 mmol/L (22-29); Chloride 105 mmol/L (98-107); Estimated GFR-MDRD Greater than 90; Globulin 3.3 g/dL (2.4-3.5); Glucose 108 mg/dL (70-105); Potassium 3.7 mmol/L (3.5-5.1); Protein, Total 6.2 g/dL (6.0-8.3); Sodium 137 mmol/L (136-145)
[2020-05-08] MEDS ORDERED: Multivitamin W/ Minerals 1 TAB PO SCH (09:00)
[2020-05-08] MEDS ORDERED: Magnesium Oxide 400 MG TAB PO SCH ×2 (09:00)
[2020-05-08] MEDS ORDERED: Thiamine 100 MG TAB PO SCH ×2 (09:00)
[2020-05-08] MEDS ORDERED: Folic Acid 1 MG TAB PO SCH (09:00)
[2020-05-08] MEDS ORDERED: Lisinopril 10 MG TAB PO SCH (09:00)
[2020-05-08] MEDS ORDERED: PHENYLEPHRINE-NS 100 MCG/ML 10 ML SYRINGE ONE (09:23)
[2020-05-08] MEDS ORDERED: Lidocaine 1% PF 5 ML VIAL ONE (09:23)
[2020-05-08] MEDS ORDERED: PROPOFOL 200 MG/20 ML VIAL ONE (09:23)
[2020-05-08] MEDS: Pantoprazole 40 MG VIAL IVP SCH (09:38)
--- NOTE | 2020-05-08 09:43 | OP ---
DATE OF PROCEDURE: 05/08/2020 PROCEDURE PERFORMED: Esophagogastroduodenoscopy with control of hemorrhage and removal of foreign body. INDICATION FOR PROCEDURE: Hematemesis. DESCRIPTION OF PROCEDURE: After the risks and benefits of the procedure were explained to the patient including risks of bleeding, infection, perforation, reactions to anesthesia, aspiration and/or pain, informed consent was obtained. The patient was then taken to the endoscopy suite, where deep sedation was administered via propofol and anesthesia support. Once adequate sedation was achieved, the standard gastroscope was introduced into the mouth with intubation of the esophagus, stomach, and the proximal small intestines with the findings listed below. The patient tolerated the procedure well with no immediate perioperative complications. Upon conclusion of the procedure, all equipment was then removed from the patient and the patient was transferred to PACU in satisfactory condition. FINDINGS: Esophagus: Normal-appearing mucosa was seen in the proximal, mid, and distal esophagus. There was no evidence of erosions, ulcerations, mass lesions or active/recent bleeding. There was also no evidence of hiatal hernia. Stomach: Normal-appearing mucosa was seen in the gastric cardia, fundus, antrum, and incisura. However, along the anterior wall of the stomach, in the gastric body, an area of heaped up tissue was seen without any associated abnormalities with it consistent with prior surgical change; however, along the posterior wall of the stomach along the greater curvature, a retained suture was also seen. At the area of the retained suture, a small 2-mm ulceration was seen along with increased surrounding mucosal erythema and mild oozing of blood. Given that the suture is the most probable cause of the ulceration and bleeding, attempts to remove the suture with monopolar snare, bipolar cautery, needle knife, and biopsy forceps were only partially successful with removal of part of the suture, but not complete removal of the suture. Increased bleeding was noted with attempts to remove the suture, at which point, bipolar cautery was then employed to cauterize both the ulcer bed around the suture itself and the surrounding mucosa that was actively oozing blood with good hemostasis achieved. Otherwise, there was no evidence of mass lesions or malignant processes within the stomach. Duodenum: Normal-appearing mucosa was seen in both the duodenal bulb and second portion of the duodenum. There was no evidence of erosions, ulcerations, mass lesions or active/recent bleeding. IMPRESSION: 1. Surgical change seen in the gastric body consistent with an anterior approach to reach the posterior aspect of the intraluminal stomach. 2. A retained suture seen along the posterior wall of the stomach and the gastric body with associated ulceration, that where the suture enters the gastric wall, and associated erythema and mild oozing of blood, now status post bipolar cauterization with good hemostasis achieved (most likely source of the patient's recent hematemesis). RECOMMENDATIONS: 1. We would continue to trend his H and H and transfuse as necessary to maintain an H and H of 7/21. 2. Continue to monitor clinically for signs of active GI bleeding. 3. Attempts to remove this suture endoscopically were unsuccessful today. If the patient exhibits any further episodes of hematemesis in the future, he may ultimately require surgical removal of this suture itself. 4. We would continue PPI b.i.d. for the next 8 weeks, then decrease to 40 mg daily. 5. Strongly encouraged alcohol cessation as it can be a chemical irritant to the lining of the stomach. 6. We would avoid any NSAIDs. At this time, the sutures the most likely reason for the patient's recent hematemesis . If he continues to have any decreased H and H or further episodes of hematemesis, would consult General Surgery for further evaluation. We will sign off at this time. Please call with any questions. Job ID: [id number]
[2020-05-08 11:52] VITALS: BP 129/61; TEMP 98.3
--- NOTE | 2020-05-08 15:32 | PRG ---
DATE OF SERVICE: 05/08/2020 Mr. Sampson underwent upper endoscopy this morning for his upper GI bleed. He was noted to have surgical changes in the gastric body consistent with an anterior approach to a posterior aspect of the intraluminal stomach. A retained suture was seen along the posterior wall of the stomach and the gastric body associated erythema and mild oozing of blood. Good hemostasis was obtained with cauterization. GI recommended we should continue to trend his H and H and transfuse as necessary to keep his hemoglobin above 7. Because of attempts to remove the suture endoscopically were unsuccessful, it was suggested that we monitor his H and H carefully and should it drop, consult General Surgery. In the meantime, Mr. Sampson looks and feels much better and is anxious to go home. He is now not tremulous or anxious and his hemoglobin has been stable since right after admission. I therefore feel it would be okay to discharge him with ER precautions and follow up with the PCP. He will therefore be discharged this afternoon. Job ID: [id number]
--- NOTE | 2020-05-09 19:21 | DIS ---
DATE OF ADMISSION: 05/06/2020 DATE OF DISCHARGE: 05/08/2020 RESIDENT: Rupa Valentino MD ADMITTING ATTENDING: Joan Sharma MD DISCHARGE ATTENDING: Phillip Lynn MD CONSULTS: Dr. Hylton (Gastroenterology). PROCEDURES: On 05/08, esophagogastroduodenoscopy with control of hemorrhage and removal of foreign body. PRIMARY DIAGNOSIS: Hematemesis secondary to retained structure on the posterior wall of the stomach and gastric body with associated ulceration. SECONDARY DIAGNOSES: EtOH abuse, hypertension, history of pancreatitis with pseudocyst, and steatohepatitis. DISCHARGE MEDICATIONS: 1. Atenolol 100 mg p.o. daily. 2. Lisinopril 10 mg p.o. daily. 3. Protonix 40 mg p.o. b.i.d. DISCONTINUED MEDICATIONS: None. HISTORY OF PRESENT ILLNESS: Patient is a 54-year-old male who presented to the ED, complaining of hematemesis x5 and episode of melena. Positive FOBT. The patient was placed on lactated Ringer's for maintenance fluids and Protonix b.i.d. Dr. Hylton , gastroenterology, was consulted. Patient underwent an EGD on 05/08/20 that revealed a retained structure seen along the posterior wall of the stomach and gastric body with associated ulceration. During the hospitalization , the patient's hemoglobin/hematocrit were trended. Hemoglobin was 14.7 on admission, decreased to 12.0 then 11.5. The patient will obtain an H and H in the morning and follow up tomorrow with his physician, Dr. Downey. During the admission, the patient was noted to be undergoing alcohol withdrawal with diaphoresis and shaking due to lack of alcohol for 2 days secondary to vomiting. The patient was placed on Valium 5mg Q6 which was then changed to Valium 5mg Q4 for better symptom control. The patient noted his symptoms improved overnight and he was transitioned to Valium 5 mg Q4 p.r.n. in the morning. The patient was encouraged in his decision to no longer consume alcohol. RUQ US was completed and showed steatohepatitis. The patient was discharged home on chlordiazepoxide taper as well as Protonix 40 mg b.i.d. for 8 weeks. After 8 weeks, the patient can be transitioned to 40 mg daily. He should also avoid NSAIDs. The patient was deemed stable for discharge on 05/08/20 with the understanding that he requires close followup in 1 day. DISPOSITION: Stable with need for close followup on H and H trend. DISCHARGE INSTRUCTIONS: Location: Home. Diet: Regular. Activity: As tolerated. Followup: Follow up with Dr. Downey in 1 day. Job ID: [id number] [facility]
== END 2020-05-08 13:40 | disposition home or self-care (01) | DRG 919 ==
LOC: ERS 20:17 → 2NO 23:27
PROVIDERS: ADMIT Student in an Organized Health Care Education/Training Program; ATTEND Student in an Organized Health Care Education/Training Program
PROC: 0DC68ZZ Extirpation of Matter from Stomach, Via Natural or Artificial Opening Endoscopic (ICD-10-PCS; principal; 2020-05-08)
PROC: 0W3P8ZZ Control Bleeding in Gastrointestinal Tract, Via Natural or Artificial Opening Endoscopic (ICD-10-PCS; 2020-05-08)
DX: T81.599A Other complications of foreign body accidentally left in body following unspecified procedure, initial encounter (principal); K25.4 Chronic or unspecified gastric ulcer with hemorrhage; K86.3 Pseudocyst of pancreas; Z20.828 Contact with and (suspected) exposure to other viral communicable diseases; F10.10 Alcohol abuse, uncomplicated; I10 Essential (primary) hypertension; E78.5 Hyperlipidemia, unspecified; K70.9 Alcoholic liver disease, unspecified; K70.0 Alcoholic fatty liver; Y83.8 Other surgical procedures as the cause of abnormal reaction of the patient, or of later complication, without mention of misadventure at the time of the procedure; F32.9 Major depressive disorder, single episode, unspecified; F17.210 Nicotine dependence, cigarettes, uncomplicated; Z79.899 Other long term (current) drug therapy
CPT/HCPCS: 36415; 76705; 80053; 80074; 80307; 81003; 81015; 82150; 82274; 82977; 83690; 85025; 85610; 86780; 86850; 86900; 86901; 87389; 87635; 96361; 96374; 96375; C9113; J2250; J2405; J3360; J3411; J3475; J3490; U0003

== ENCOUNTER 2020-07-01 12:13 | Inpatient (IN) | payer OTHER, SELFPAY ==
[2020-07-01] MEDS ORDERED: Multivitamins, Adult 10 ML, Thiamine HCl 100 MG, Folic Acid 1 MG in Dextrose 5 %-0.45 %... IV SCH (13:00)
[2020-07-01] MEDS ORDERED: Lorazepam 2 MG/ML VIAL SLOW IVP SCH (13:00)
[2020-07-01] MEDS ORDERED: Sodium Chloride 0.9% 1,000 ML IV SCH (13:00)
[2020-07-01] MEDS ORDERED: Lorazepam 2 MG/ML VIAL ONE (13:05)
[2020-07-01 13:23] LABS: #Monocytes 0.9 thou/uL (0.11-0.59); %Basophils 0.8 % (0.0-1.0); %Eosinophils 0.2 % (0.0-10.0); %Lymphocytes 17.2 % (21.0-51.0); %Monocytes 14.8 % (0.0-10.0); Hemoglobin 12.2 g/dL (14.0-18.0); Mean Corpuscular HGB CONC 32.7 g/dL (32.0-36.0); Mean Corpuscular Hemoglobin 31.5 pg (27.0-31.0); Mean Corpuscular Volume 96.4 fL (78.0-98.0); Mean Platelet Volume 6.7 fL (7.4-10.4); Platelet Count 72 thou/uL (130-400); RBC Distribution Width 12.6 % (11.5-14.5); Red Blood Cell (RBC) Count 3.87 mill/uL (4.70-6.10); White Blood Cell (WBC) Count 5.9 thou/uL (4.8-10.8)
[2020-07-01 13:29] LABS: PTT 28.9 sec (22.9-36.1); Prothrombin Time 13.5 sec (12.0-14.7)
[2020-07-01 13:46] LABS: ALT (SGPT) 42 U/L (8-55); AST (SGOT) 80 U/L (5-34); Albumin 3.9 g/dL (3.5-5.0); Alcohol 88 mg/dL (Less than 10); Alkaline Phosphatase 198 U/L (40-110); Anion Gap 17 mmol/L (10-20); BUN (Urea Nitrogen) 12 mg/dL (8.4-25.7); Bilirubin, Total 1.2 mg/dL (0.2-1.2); Calc. Creatinine Clearance 0 mL/min (70-130); Calcium 9.4 mg/dL (7.8-10.44); Carbon Dioxide 27 mmol/L (22-29); Chloride 102 mmol/L (98-107); Estimated GFR-MDRD Greater than 90; Globulin 3.9 g/dL (2.4-3.5); Glucose 137 mg/dL (70-105); Potassium 3.8 mmol/L (3.5-5.1); Protein, Total 7.8 g/dL (6.0-8.3); Sodium 142 mmol/L (136-145)
[2020-07-01] MEDS ORDERED: Pantoprazole 40 MG VIAL ONE (13:56)
--- NOTE | 2020-07-01 15:30 | PDOC.FPRHP ---
- History of Present Illness Chief Complaint: Hematemesis History of Present Illness: This is a 54 y/o M with PMHx of HTN and ETOH use who presents today after 3-4 bouts of hematemesis. He states that the emesis was streaked with blood and mixed in with the gatorade that he had this AM. States that the last time this happened to him was 2-3 months ago for which he was hospitalized and an EGD was done in which an ulcer was found. States that he was put on medication for the next couple months and states that he has been taking it compliantly. Of note, pt drinks about 8-10 drinks per day and has been drinking since he was a teenager. Denied going into withdrawal or having seizures to me. No other complaints at this time besides lightheadedness. ED Course: Iv protonix 80, banana bag x 1, 1L NS, ativan 2mg x1 - Allergies/Adverse Reactions Allergies Allergy/AdvReac Type Severity Reaction Status Date / Time No Known Drug Allergies Allergy Verified 06/30/19 04:33 - Home Medications Medication Instructions Recorded Confirmed Type Atenolol 100 mg PO DAILY #30 tablet 06/30/19 07/01/20 Rx Lisinopril [Zestril] 10 mg PO DAILY #30 tab 06/30/19 07/01/20 Rx Pantoprazole [Protonix] 40 mg PO BID 30 Days #60 tab 05/08/20 07/01/20 Rx - History PMHx: -HTN -ETOH abuse PSHx: -2008; pancreatic psuedocyst FHx: -grandmother: CAD Social: -no tobacco use, drinks 8-10 alcoholic drinks/day, no drug use - Review of Systems General: denies: fever/chills Eyes: denies: eye pain ENT: denies: nasal congestion Respiratory: denies: cough, congestion, shortness of breath Cardiovascular: denies: chest pain, palpitation, orthopnea Gastrointestinal: reports: vomiting, GI bleeding. denies: nausea, diarrhea, con stipation, abdominal pain Genitourinary: denies: incontinence, dysuria, polyuria Skin: denies: rashes, lesions, jaundice Musculoskeletal: denies: pain, tenderness, stiffness, swelling Neurological: denies: numbness, syncope, seizure Psychological: denies: anxiety, depression - Vital signs BP: 170/99, Pulse: 104, Resp: 20, Pain: 0, O2 sat: 99, Time: 07/01/2020 15:19. - Physical Exam Constitutional: NAD -Constitutional: tremulous HEENT: normocephalic and atraumatic, grossly normal vision, grossly normal hearing Neck: supple Chest: no-tender to palpation Heart: RRR, normal S1/S2, no murmurs/rubs/gallops, no edema Lungs: CTAB, no respiratory distress, no wheezing Abdomen: soft, non-tender, bowel sounds present Musculoskeletal: normal structure, normal tone, ROM grossly normal Neurological: no focal deficit, CN II-XII intact, normal sensation Skin: no rash/lesions, no jaundice -Skin: cap refill > 2 seconds Heme/Lymphatic: no unusual bruising or bleeding Psychiatric: normal mood and affect, good judgment and insight, intact recent and remote memory FMR H&P: Results - Labs Result Diagrams: 07/02/20 04:32 07/02/20 04:32 Lab results: WBC 5.9 thou/uL (4.8-10.8) 07/01/20 12:59 Hgb 12.2 g/dL (14.0-18.0) L 07/01/20 12:59 Hct 37.3 % (42.0-52.0) L 07/01/20 12:59 MCV 96.4 fL (78.0-98.0) 07/01/20 12:59 Plt Count 72 thou/uL (130-400) L 07/01/20 12:59 Neutrophils % 67.0 % (42.0-75.0) 07/01/20 12:59 Sodium 142 mmol/L (136-145) 07/01/20 12:59 Potassium 3.8 mmol/L (3.5-5.1) 07/01/20 12:59 Chloride 102 mmol/L (98-107) 07/01/20 12:59 Carbon Dioxide 27 mmol/L (22-29) 07/01/20 12:59 BUN 12 mg/dL (8.4-25.7) 07/01/20 12:59 Creatinine 0.65 mg/dL (0.7-1.3) L 07/01/20 12:59 Glucose 137 mg/dL (70-105) H 07/01/20 12:59 Calcium 9.4 mg/dL (7.8-10.44) 07/01/20 12:59 Total Bilirubin 1.2 mg/dL (0.2-1.2) 07/01/20 12:59 AST 80 U/L (5-34) H 07/01/20 12:59 ALT 42 U/L (8-55) 07/01/20 12:59 Alkaline Phosphatase 198 U/L (40-110) H 07/01/20 12:59 Serum Total Protein 7.8 g/dL (6.0-8.3) 07/01/20 12:59 Albumin 3.9 g/dL (3.5-5.0) 07/01/20 12:59 FMR H&P: A/P - Problem List (1) Hypovolemia Current Visit: Yes Status: Acute Code(s): E86.1 - HYPOVOLEMIA (2) Normocytic anemia Current Visit: Yes Status: Chronic Code(s): D64.9 - ANEMIA, UNSPECIFIED (3) Thrombocytopenia Current Visit: Yes Status: Chronic Code(s): D69.6 - THROMBOCYTOPENIA, UNSPECIFIED (4) HTN (hypertension) Current Visit: No Status: Chronic Code(s): I10 - ESSENTIAL (PRIMARY) HYPERTENSION Qualifiers: Hypertension type: essential hypertension Qualified Code(s): I10 - Essential (primary) hypertension (5) Hematemesis Current Visit: No Status: Acute Code(s): K92.0 - HEMATEMESIS Qualifiers: Nausea presence: without nausea Qualified Code(s): K92.0 - Hematemesis (6) Alcohol use disorder Current Visit: No Status: Chronic Code(s): [id number] - - Plan This is a 54 y/o with PMHx of HTN and ETOH abuse who presents today with hematemesis. ##Hematemesis 2/2 likely to PUD -EGD done in 04/2020 showed PUD with retained suture from a previous surgery could likely be source of bleeding, no varices seen at that time -continue IV protonix -consulted GI, appreciated recs, will go for EGD tomorrow, NPO @ 12AM -type and screen ##Hypovolemia 2/2 hematemesis -given 1L bolus in ED, will give another and then start on IVMF -will continue to monitor #ETOH abuse -hx of this, last drink at 11PM yesterday -AST/ALT = 80/42 -ETOH level 88 at admission -RUQ done at last admission 04/2020 showed steatohepatosis -started librium and ase protocol -IV thiamine and multivitamins ##Normocytic Anemia -H/H 12.2/37.3 -will trend H/H Q4H to monitor bleeding ##Thrombocytopenia -plts 72 -most likely due to etoh abuse -will continue to monitor ##HTN -restart home meds DIET: Regular, NPO @ 12AM CODE: FULL VTE: none PCP: Shayan Dispo: continue to monitor symptoms, H/H trend, EGD pending tomorrow. FMR H&P: Upper Level - Plan Date/Time: 07/01/20 1530 ITorito, , have evaluated this patient and agree with findings/plan as outlined by information technology internship resident. Pertinent changes/additions are listed here. This is a 54 yo male with a pmh of pancreatitis, peptic ulcer disease, alcohol abuse, depression, who presents to the ER with a cc of hematemesis. He states he had 4 episodes of maroon/dark red blood this AM. He states this appeared similar quantity as his previous episode 2 months ago. He states he has continued drinking alcohol and his last intake was last night. He states he had 10 keystone light beers. This morning he reports his episodes of vomiting. He has not had anything to eat all day. He denies dizziness, weakness, chest pain, or melena. He does report some epigastric pain. On 05/06/20, pt was admitted for hematemesis 2/2 retained suture from a previous pancreatic psueodcyst removal. At that time, Dr. Ryan, via EGD discovered the retained suture as the likely cause of a bleeding stomach ulcer. Attempts were made to remove the suture but were only partially successful. He noted that if the bleeding continued, a repeat EGD should be performed at attempts should be made remove it again. In addition, after his discharge during that admission, he was instructed to take protonix BID for 8 weeks. Today, the pt reports that he has not been taking these as prescribed. Currently, the pt is in NAD, has MMM, is tachycardic with no murmurs, has an elevated BP with a wide pulse pressure, lungs CTAB, has mild abdominal pain with BS+, soft abdomen, pulses 2+ throughout. A/P 1) Peptic ulcer 2/2 retained suture with active bleeding: Consult GI, type and screen, does not need any blood products at this time, we will monitor his H/H q4hrx2 checks and then in the morning if these remain stable. 2) Chronic alcohol abuse: ASE protocol, thiamine and folate replacement, hydration. 3) Hypovolemia 2/2 blood loss, vomiting, and alcohol abuse: Fluid resuscitation with LR. Please see information technology internship note for further management of chronic disorders. Code: Full Prophylaxis: Protonix Family: at bedside Fluids: LR 100ml/hr Diet: NPO Disposition: DC in 2-3 days PCP: Dr. Downey Addendum - Attending - Attending Attestation Date/Time: 07/02/20 [id number] I personally evaluated the patient and discussed the management with Dr. Fountain last night at time of admission. I agree with the History, Examination, Assessment and Plan documented above with any addition or exceptions noted below.
[2020-07-01] MEDS ORDERED: Ondansetron ODT 4 MG TAB PO PRN (15:51)
[2020-07-01] MEDS ORDERED: Lactated Ringer's 1,000 ML IV SCH (16:00)
[2020-07-01] MEDS ORDERED: Multivitamin W/ Minerals 1 TAB PO SCH (16:45)
[2020-07-01 17:40] LABS: Hemoglobin 11.5 g/dL (14.0-18.0)
[2020-07-01] MEDS: chlordiazePOXIDE HCl 25 MG CAP PO SCH ×2 (18:53→21:40)
[2020-07-01] MEDS: Lactated Ringer's 1,000 ML IV SCH (18:53)
[2020-07-01] MEDS: Thiamine HCl 200 MG/2 ML VIAL SLOW IVP SCH (18:53)
[2020-07-01] MEDS: Pantoprazole 40 MG VIAL IVP SCH (21:40)
[2020-07-01 21:56] LABS: Hemoglobin 11.7 g/dL (14.0-18.0)
[2020-07-01 21:58] VITALS: BMI 20.3
--- NOTE | 2020-07-01 22:00 | CON ---
DATE OF CONSULTATION: 07/01/2020 REQUESTING PHYSICIAN: Dr. Fountain. REASON FOR CONSULTATION: Hematemesis. HISTORY OF PRESENT ILLNESS: Brian Sampson is a 54-year-old man admitted to the hospital today with acute hematemesis this morning. He says this occurred without warning. This morning, he had three episodes of emesis of bright red blood. There is really no associated abdominal pain with this. He has not had any bowel movements, certainly no melena today. He was drinking alcohol heavily up until 11 p.m. last night and has not had any further alcohol today. He is starting to feel withdrawal symptoms. He does not really have any other complaints. Hemoglobin is 12.2, and aside from tachycardia, his blood pressure is good and he is otherwise stable. He was started on IV Protonix and has been made n.p.o. He has no other complaints. Notably, the patient had a very similar presentation with hematemesis just two months ago and on 05/08/2020, he underwent EGD with my partner, Dr. Ryan. He was found to have postoperative changes within the stomach along the greater curvature with retained suture and an associated 2 mm ulceration with mild oozing of blood. Dr. Ryan attempted to remove the suture, but was only partially successful with this and then bipolar cautery was used to achieve hemostasis. Notably, there was no evidence of any Cynthia-Walsh tear or any varices at that time. REVIEW OF SYSTEMS: Full review of systems including constitutional, head, eyes, ears, nose, throat, GI, , cardiovascular, respiratory, musculoskeletal, and neurologic systems is negative except as noted in the HPI. PAST MEDICAL HISTORY: Alcohol abuse, hypertension, hyperlipidemia, pancreatitis with pseudocyst in 2008, evidently had pseudocyst drainage at that time. ALLERGIES: NO KNOWN DRUG ALLERGIES. MEDICATIONS: Lisinopril and atenolol. SOCIAL HISTORY: The patient has had up to 10 beers a day for many years. No tobacco or drug use. FAMILY HISTORY: Negative for GI malignancy. PHYSICAL EXAMINATION: VITAL SIGNS: Pulse 119, blood pressure 172/96, and 96% oxygen saturation on room air. GENERAL: A 54-year-old man, lying in bed comfortably, in no distress. SKIN: No jaundice. No rashes were palpable. HEENT: Eyes, no scleral icterus. Extraocular movements intact. ENT, mucous membranes moist. No oral lesions. LYMPH: No submandibular or supraclavicular lymphadenopathy. THYROID: Nontender to palpation. HEART: Regular, tachycardia. No murmurs. LUNGS: Clear to auscultation bilaterally. ABDOMEN: Bowel sounds present. Nondistended, soft, nontender to deep palpation throughout. EXTREMITIES: No peripheral edema. VESSELS: Radial pulses 2+ bilaterally. NEUROLOGIC: Cranial nerves 2 through 12 intact bilaterally. No focal deficits. LABORATORY STUDIES: Hemoglobin 12.2, WBC 5.9, platelets 72. INR 1.0, sodium 142, potassium 3.8, BUN only 12, creatinine 0.65, glucose 137, total bilirubin 1.2, alkaline phosphatase 198, AST 80, ALT 42, albumin 3.9, plasma alcohol level is 88. ASSESSMENT AND PLAN: 1. Acute hematemesis. 2. Prior history of gastric surgery, with retained suture causing hemorrhage two months ago. 3. Ongoing alcohol abuse, having some withdrawal tachycardia. I discussed the situation with the patient. He had acute bleeding this morning, but no further evidence of overt bleeding since that time. Blood pressure is good. Ongoing tachycardia likely represents alcohol withdrawal rather than effective hemorrhage. Hemoglobin looks good at 12.2 and BUN is not elevated. I agree with the IV PPI. We will plan for diagnostic esophagogastroduodenoscopy tomorrow for reassessment of this bleeding area and rule out other lesions. Dr. Ryan had recommended that if this same area continues to cause clinically significant bleeding, then surgical consultation might have to be entertained. Thank you for the consultation. Please call anytime with questions or concerns. Job ID: [id number]
[2020-07-02] MEDS: chlordiazePOXIDE HCl 25 MG CAP PO SCH ×4 (03:13→19:01)
[2020-07-02] MEDS: Lactated Ringer's 1,000 ML IV SCH ×2 (03:15→18:36)
[2020-07-02 05:09] LABS: #Eosinphils 0.1 thou/uL (0.0-0.7); #Lymphocytes 1.6 thou/uL (1.20-3.40); #Monocytes 0.9 thou/uL (0.11-0.59); #Neutrophils 3.8 thou/uL (1.40-6.50); %Basophils 0.6 % (0.0-1.0); %Eosinophils 1.5 % (0.0-10.0); %Lymphocytes 24.6 % (21.0-51.0); %Monocytes 13.8 % (0.0-10.0); %Neutrophils 59.5 % (42.0-75.0); Hemoglobin 11.6 g/dL (14.0-18.0); Mean Corpuscular HGB CONC 33.8 g/dL (32.0-36.0); Mean Corpuscular Hemoglobin 33.1 pg (27.0-31.0); Mean Platelet Volume 7.3 fL (7.4-10.4); Platelet Count 64 thou/uL (130-400); RBC Distribution Width 12.7 % (11.5-14.5); Red Blood Cell (RBC) Count 3.52 mill/uL (4.70-6.10); White Blood Cell (WBC) Count 6.5 thou/uL (4.8-10.8)
[2020-07-02 05:31] LABS: ALT (SGPT) 32 U/L (8-55); AST (SGOT) 60 U/L (5-34); Albumin 3.3 g/dL (3.5-5.0); Alkaline Phosphatase 153 U/L (40-110); Anion Gap 12 mmol/L (10-20); BUN (Urea Nitrogen) 9 mg/dL (8.4-25.7); Bilirubin, Total 1.9 mg/dL (0.2-1.2); Calc. Creatinine Clearance 115 mL/min (70-130); Calcium 8.9 mg/dL (7.8-10.44); Carbon Dioxide 24 mmol/L (22-29); Chloride 103 mmol/L (98-107); Estimated GFR-MDRD Greater than 90; Globulin 3.4 g/dL (2.4-3.5); Glucose 96 mg/dL (70-105); Potassium 3.4 mmol/L (3.5-5.1); Protein, Total 6.7 g/dL (6.0-8.3); Sodium 136 mmol/L (136-145)
--- NOTE | 2020-07-02 07:04 | PDOC.FM ---
- Subjective Subjective: Patient reports blood present in mouth upon waking this am. He denies vomiting or reflux episodes overnight. He also denies headache, vision changes, chest pain, SOB, nausea, vomiting, hematemesis, melena and hematochezia. He has not experienced tremors, visual/auditory/tactile hallucinations, and nightmares. - Objective MAR Reviewed: Yes Vital Signs & Weight: Vital Signs (12 hours) Temp Pulse Resp BP BP Pulse Ox 07/02/20 03:22 173/84 H 07/02/20 03:18 98.5 F 90 17 173/84 H 98 07/01/20 23:43 168/88 H 07/01/20 23:41 98.3 F 92 18 168/88 H 98 07/01/20 22:04 183/90 H 07/01/20 21:43 98.9 F 105 H 18 183/90 H 97 Weight Weight 62.596 kg I&O: 07/01/20 07/02/20 07/03/20 06:59 06:59 06:59 Output Total 1100 Balance -1100 Result Diagrams: 07/02/20 04:32 07/02/20 04:32 Phys Exam - Physical Examination Constitutional: NAD HEENT: moist MMs, sclera anicteric Neck: supple, full ROM Respiratory: no wheezing, clear to auscultation bilateral Cardiovascular: RRR, no significant murmur Gastrointestinal: soft, non-tender, positive bowel sounds Musculoskeletal: no edema, pulses present Neurological: non-focal, normal sensation, moves all 4 limbs No tremor Psychiatric: normal affect, A&O x 3 Skin: no rash, normal turgor Dx/Plan - Plan Plan: This is a 54 y/o with PMHx of HTN and ETOH abuse who presented to ED with hematemesis. Hematemesis 2/2 likely to PUD EGD done in 04/2020 showed PUD with retained suture from a previous surgery thought to be source of bleeding. No varices seen at that time. - Hgb stable. 12.2->11.5->11.7->11.6 -Continue IV protonix -Consulted GI, appreciated recs - scheduled for EGD this am Hypovolemia 2/2 hematemesis, vomiting, alcohol abuse -continue LR maintanence fluids Hx alcohol abuse Hx of heavy drinking. Last drink at 11PM on 06/30. In ED: AST/ALT = 80/42, ETOH level 88. -Continue ase protocol -Decrease chlordiazepoxide 50mg Q6H scheduled to Q8H. Continue tapering as tolerated. -IV thiamine and folate Normocytic Anemia H/H 12.2/37.3 with MCV 98 in ED. -Hgb stable -Monitor with daily CBC Thrombocytopenia likely 2/2 ETOH use In ED, plts 72, now 64. -Monitor with daily CBC HTN -Continue home meds Steatoheptosis -Observed on RUQ US in 04/29 CODE: FULL VTE: none PCP: Shayan Dispo: Home pending EGD results and further medical management Addendum - Attending - Attending Attestation Date/Time: 07/02/20 1250 I personally evaluated the patient and discussed the management with Dr. Valentino. I agree with the History, Examination, Assessment and Plan documented above with any addition or exceptions noted below.
[2020-07-02] MEDS ORDERED: Lisinopril 10 MG TAB PO SCH (09:00)
[2020-07-02] MEDS ORDERED: Potassium Chloride 20 MEQ TAB PO SCH (09:15)
[2020-07-02] MEDS: Atenolol 50 MG TAB PO SCH (09:44)
[2020-07-02] MEDS: Pantoprazole 40 MG VIAL IVP SCH ×2 (09:45→21:44)
[2020-07-02] MEDS: Multivitamin W/ Minerals 1 TAB PO SCH (09:45)
[2020-07-02] MEDS ORDERED: Iopamidol 370 76% 50 ML VIAL FS ONE (10:58)
[2020-07-02] MEDS ORDERED: Iopamidol-370 76% 500 ML 1 ML ONE (10:58)
[2020-07-02 13:32] LABS: SARS-CoV-2 MS2 Positive; SARS-CoV-2 N Gene Negative; SARS-CoV-2 S Gene Negative; SARS-CoV-2 by NAA Not Detected (NotDetected); SARS-CoV-2 orf1ab Negative
[2020-07-02] MEDS ORDERED: Lidocaine 1% PF 5 ML VIAL ONE (14:25)
[2020-07-02] MEDS ORDERED: EPHEDRINE 25 MG/5 ML SYRINGE ONE (14:25)
[2020-07-02] MEDS ORDERED: PROPOFOL 200 MG/20 ML VIAL ONE (14:26)
[2020-07-02] MEDS ORDERED: Octreotide Acetate 1,250 MCG in Sodium Chloride 0.9% 250 ML 250 ML IVPB SCH (16:35)
[2020-07-02] MEDS ORDERED: cefTRIAXone\\ROCEPHIN 2 GM in Sodium Chloride 0.9% 100 ML IVPB SCH (17:00)
[2020-07-02] MEDS: Thiamine HCl 200 MG/2 ML VIAL SLOW IVP SCH (19:02)
--- NOTE | 2020-07-02 20:29 | OP ---
DATE OF PROCEDURE: 07/02/2020 PROCEDURE PERFORMED: Esophagogastroduodenoscopy with band ligation x1. INDICATION FOR PROCEDURE: Hematemesis. DESCRIPTION OF PROCEDURE: After the risks and benefits of the procedure were explained to the patient including risks of bleeding, infection, perforation, reactions to anesthesia, aspiration, and/or pain, informed consent was obtained. The patient was then taken to the endoscopy suite, where deep sedation was administered via propofol and anesthesia support. Once adequate sedation was achieved, the standard gastroscope was introduced into the mouth with intubation of the esophagus, stomach, and the proximal small intestines with the findings listed below. The patient tolerated the procedure well with no immediate perioperative complications. On conclusion of the procedure, all equipment was removed from the patient and he was transferred to PACU in satisfactory condition. FINDINGS: Esophagus: Normal-appearing mucosa was seen both in the proximal and mid esophagus; however, large (grade 2) esophageal varices were seen in the distal esophagus, one of which did display high-risk stigmata bleeding in the form of red cathie sign. There was no evidence of recent bleeding seen in this region, but given this high-risk stigmata, he underwent band ligation x1 with good hemostasis achieved. Otherwise, there was no evidence of erosions, ulcerations, mass lesions, or active/recent bleeding. Stomach: Moderately severe diffuse mucosal erythema was seen in the gastric cardia, fundus, body, and along the greater curvature in a mosaic-type pattern, but did not exhibit any evidence of ulceration or active/recent bleeding. The retained suture material described during his previous upper endoscopy was seen along the greater curvature in the gastric body, but did not exhibit any active bleeding nor did have any associated ulceration with the suture material. Normal-appearing mucosa was then seen within the antrum and along the incisura. There was no evidence of erosions, ulcerations, mass lesions, or active/recent bleeding. No gastric varices were seen on gastric retroflexion. Duodenum: Normal-appearing mucosa was seen in both the duodenal bulb and second portion of the duodenum. There was no evidence of erosions, ulcerations, mass lesions, or active/recent bleeding. IMPRESSION: 1. Large (grade 2) distal esophageal varices with red cathie sign, status post band ligation x1. 2. Moderately severe portal hypertensive gastropathy that is concerning for cirrhosis when combined with #1. 3. Retained suture material seen along the greater curvature without associated ulcerations or bleeding. 4. No evidence of gastric varices. RECOMMENDATIONS: 1. We would continue to trend the patient's hemoglobin and hematocrit and transfuse as necessary to maintain hemoglobin and hematocrit of 7/21. 2. Continue to monitor clinically for signs of active GI bleeding. 3. We would place the patient on octreotide in light of possible variceal bleed. 4. We would also place the patient on antibiotics as part of infection prophylaxis in a probable cirrhotic patient. 5. We would continue pantoprazole 40 mg IV b.i.d. 6. We would start the patient on a clear liquid diet and advance as tolerated tomorrow. 7. Strongly encourage complete alcohol cessation. 8. We would obtain imaging of the liver for evaluation of possible cirrhotic morphology and/or portal hypertension. We will continue to follow. Please call with any questions. Job ID: [id number]
--- NOTE | 2020-07-02 21:05 | CT ---
CT ABDOMEN AND PELVIS WITH IV CONTRAST 07/02/20 PROVIDED CLINICAL HISTORY: Hematemesis and melena. FINDINGS: No recent comparison examinations. CT abdomen and pelvis 03/08/09 is referenced. The visualized lung bases are free of significant opacity. The liver, spleen, pancreas, kidneys, and adrenal glands demonstrate an unremarkable CT appearance. T here are multiple paraesophageal varices demonstrated. There are mild splenic varices demonstrated. T he caliber of the portal vein is normal and the portal vein appears patent. There is a subtle nodular contour to the periphery of the liver suggesting cirrhosis. There is no evidence for hepatic mass or intrahepatic biliary ductal dilatation. There is linear calcification in the pelvis and retroperitoneum presumably reflecting sequela of kait or insult. There is no localized inflammatory fat stranding, free fluid, or free air apparent. The ur inary bladder wall appears mildly thickened, nonspecific. The osseous structures demonstrate no concerning lytic or blastic lesions. The spleen is not enlarged and demonstrates multiple calcified granulomata. IMPRESSION: 1. Subtle peripheral nodular contour of the liver compatible with cirrhosis. Splenic and paraeso phageal varices are demonstrated. 2. Nonspecific bladder wall thickening. POS: NOAH
[2020-07-02] MEDS: Lorazepam 2 MG/ML VIAL SLOW IVP PRN (21:45)
[2020-07-03] MEDS: chlordiazePOXIDE HCl 25 MG CAP PO SCH ×2 (02:14→10:08)
[2020-07-03] MEDS: Lactated Ringer's 1,000 ML IV SCH ×2 (02:30→10:05)
[2020-07-03 05:17] LABS: Prothrombin Time 13.5 sec (12.0-14.7)
[2020-07-03 05:23] LABS: #Eosinphils 0.1 thou/uL (0.0-0.7); #Monocytes 0.9 thou/uL (0.11-0.59); #Neutrophils 3.3 thou/uL (1.40-6.50); %Basophils 0.8 % (0.0-1.0); %Eosinophils 1.6 % (0.0-10.0); %Lymphocytes 31.2 % (21.0-51.0); %Monocytes 14.5 % (0.0-10.0); Hemoglobin 12.1 g/dL (14.0-18.0); Mean Corpuscular HGB CONC 32.8 g/dL (32.0-36.0); Mean Corpuscular Hemoglobin 32.3 pg (27.0-31.0); Mean Corpuscular Volume 98.5 fL (78.0-98.0); Mean Platelet Volume 7.2 fL (7.4-10.4); Platelet Count 64 thou/uL (130-400); RBC Distribution Width 12.9 % (11.5-14.5); Red Blood Cell (RBC) Count 3.76 mill/uL (4.70-6.10); White Blood Cell (WBC) Count 6.3 thou/uL (4.8-10.8)
[2020-07-03 05:38] LABS: ALT (SGPT) 32 U/L (8-55); AST (SGOT) 56 U/L (5-34); Albumin 3.4 g/dL (3.5-5.0); Alkaline Phosphatase 152 U/L (40-110); Anion Gap 16 mmol/L (10-20); BUN (Urea Nitrogen) 10 mg/dL (8.4-25.7); Bilirubin, Total 1.5 mg/dL (0.2-1.2); Calc. Creatinine Clearance 102 mL/min (70-130); Calcium 9.2 mg/dL (7.8-10.44); Carbon Dioxide 21 mmol/L (22-29); Chloride 102 mmol/L (98-107); Estimated GFR-MDRD Greater than 90; Globulin 3.5 g/dL (2.4-3.5); Glucose 100 mg/dL (70-105); Potassium 3.9 mmol/L (3.5-5.1); Protein, Total 6.9 g/dL (6.0-8.3); Sodium 135 mmol/L (136-145)
--- NOTE | 2020-07-03 06:12 | PDOC.FM ---
- Subjective Subjective: Patient reports generalized weakness and fatigue. He denies headache, vision changes, chest pain, SOB, nausea, vomiting and abdominal pain. He also denies tremors and visual/auditory/tactile hallucinations. He says he knows he has a problem with alcohol use and needs help. He reports quitting ETOH use for 1 month after his last hospitalization but resumed after breaking up with his girlfriend. He has tried AA in the past but finds it too boring. He is interested in counselling outpatient. - Objective MAR Reviewed: Yes Vital Signs & Weight: Vital Signs (12 hours) Temp Pulse Resp BP Pulse Ox 07/03/20 04:00 98.2 F 79 20 182/96 H 98 07/03/20 00:00 98.5 F 73 20 138/78 99 07/02/20 21:05 97.7 F 79 16 150/79 H 99 07/02/20 20:00 97.8 F 78 19 143/79 H 98 Weight Weight 62.596 kg I&O: 07/01/20 07/02/20 07/03/20 06:59 06:59 06:59 Output Total 1100 Balance -1100 Result Diagrams: 07/03/20 04:48 07/03/20 04:48 Phys Exam - Physical Examination Constitutional: NAD Sitting comfortably in a chair using dip HEENT: moist MMs, sclera anicteric Neck: supple, full ROM Respiratory: no wheezing, clear to auscultation bilateral Cardiovascular: RRR, no significant murmur Gastrointestinal: soft, non-tender, no distention, positive bowel sounds Musculoskeletal: no edema, pulses present Neurological: non-focal, normal sensation, moves all 4 limbs Hand tremor present bilaterally Psychiatric: normal affect, A&O x 3 Skin: no rash, normal turgor Dx/Plan - Plan Plan: This is a 54 y/o with PMHx of HTN and ETOH abuse who presented to ED with hematemesis. Hematemesis 2/2 Grade 2 Distal Esophageal Varices s/p band ligation EGD done in 04/2020 showed PUD with retained suture from a previous surgery thought to be source of bleeding. No varices seen at that time. EGD on 07/02 showed large, grade 2, distal esophageal varices s/p band ligation and moderately severe portal hypertensive gastropathy -H/H stable, continue to trend -Continue IV protonix 40mg BID -Consulted GI, appreciated recs - started octreotide and rocephin 2mg Q24H on 07/02 -Clear liquid diet and advance as tolerated -Consult PT Moderately severe portal hypertensive gastropathy -Observed on 07/02 EGD -AFP 4.9 -Started on Rocephin 2mg Q24H (07/02) for infection prophylaxis -CT A/P to evaluate to possible cirrhosis Hypovolemia, improved 2/2 hematemesis, vomiting, alcohol abuse -continue LR maintanence fluids Hx alcohol abuse Hx of heavy drinking. Last drink at 11PM on 06/30. In ED: AST/ALT = 80/42, ETOH level 88. -Continue ase protocol -Required ativan 1mg overnight. Continue chlordiazepoxide 50mg Q8H scheduled. Continue tapering as tolerated. -IV thiamine and folate -CM referral to investigation counselling options outpatient Normocytic Anemia H/H 12.2/37.3 with MCV 98 in ED. -Hgb stable -Monitor with daily CBC Thrombocytopenia likely 2/2 ETOH use In ED, plts 72, now 64. -Monitor with daily CBC HTN -Continue home meds -Continue Lisinopril 20mg daily Steatoheptosis -Observed on RUQ US in 04/29 CODE: FULL VTE: none PCP: Shayan Dispo: Home pending further medical management Addendum - Attending - Attending Attestation Date/Time: 07/03/20 2831 I personally evaluated the patient and discussed the management with Dr. Valentino. I agree with the History, Examination, Assessment and Plan documented above with any addition or exceptions noted below.
[2020-07-03] MEDS: Lorazepam 2 MG/ML VIAL SLOW IVP PRN ×2 (07:34→17:07)
[2020-07-03] MEDS ORDERED: Lisinopril 20 MG TAB PO SCH (09:00)
[2020-07-03] MEDS: Multivitamin W/ Minerals 1 TAB PO SCH (10:07)
[2020-07-03] MEDS: Pantoprazole 40 MG VIAL IVP SCH (10:07)
[2020-07-03] MEDS: Atenolol 50 MG TAB PO SCH (10:08)
[2020-07-03] MEDS ORDERED: Labetalol HCl 100 MG/20 ML VIAL SLOW IVP PRN (12:34)
--- NOTE | 2020-07-03 13:13 | PDOC.BPN ---
- Brief Progress Note Encounter Date: 07/03/20 Encounter Time: 13:00 Paged by patient's nurse at 1255, patient was found lying near window in room. Patient stated that he had gotten up to throw away some trash and he felt "unsteady" and fell down. He remembers hitting his head on the window ledge. Denies any dizziness or loss of consciousness. Patient was noted to have a skin tear that was actively bleeding on his upper left thigh. Also says he has a bump on his head that is tender to touch. Head: Palpable tender area to left temporal-parietal area of head. No areas of bleeding. EOMI. MMM. Cardiac: RRR, no murmur. Respiratory: CTAB: Abdomen: soft, nontender Neuro: A&O x 3. No focal deficits. Extremities: Small skin tear on left upper thigh. A/P: S/P Fall from standing. Will obtain non-contrast head CT. Place tegaderm on area of skin tear.
--- NOTE | 2020-07-03 14:27 | CT ---
CT BRAIN WITHOUT CONTRAST: Date: 07/03/2020 HISTORY: Fall from standing, hit head on window ledge. Patient on blood thinners. COMPARISON: 06/30/2019. FINDINGS: Changes of chronic small vessel ischemic disease are again seen. The ventricular size is stable and t he basilar cisterns are patent. No evidence of acute infarct, hemorrhage, midline shift, or abnormal extra-axial fluid collections are seen. The bony calvarium is intact. The visualized paranasal sinuse s and mastoid air cells are well aerated. IMPRESSION: No CT evidence of acute intracranial process. POS: AH
[2020-07-03 16:02] VITALS: BP 166/85; TEMP 97.7
--- NOTE | 2020-07-03 16:09 | PRG ---
DATE OF SERVICE: 07/03/2020 SUBJECTIVE: Mr. Sampson is without complaints. He states he has been resting in bed. He is attached to no IV fluids. I asked him about his octreotide drip medicine, he says they have . He denies hematemesis or melena. He wonders when he gets to go. MEDICATIONS: 1. Atenolol 100 p.o. daily. 2. Rocephin q.24. 3. Librium 50 p.o. q.8. 4. Multivitamin. 5. Labetalol 20 q.4 p.r.n. 6. LR 100. 7. Lisinopril. 8. Ativan p.r.n. 9. Octreotide drip, he is not getting that. 10. Pantoprazole 40 IV q.12. 11. Thiamine. OBJECTIVE: VITAL SIGNS: Temperature is 98, pulse 70, blood pressure 144/72. GENERAL: The patient is thin, lying in bed. He is alert and oriented to person, place, time. He is without complaints. LABORATORY DATA: White count 6.3, hemoglobin 12.1, platelet count 64,000. INR 1 today. Sodium 135, potassium 3.9, BUN and creatinine are 10 and 0.7, bilirubin is 1.5, AST 56, ALT 32, alkaline phosphatase 152, albumin is 3.4 . Alcohol on admission on the was 88. COVID negative. Brain CT negative today. CT scan yesterday nodular liver, cirrhotic. EGD yesterday showed varices, banded. ASSESSMENT: 1. Cirrhosis, likely alcoholic liver disease. 2. Alcohol withdrawal yesterday, seemingly improved today. 3. Varices banded. 4. The patient is not on his octreotide, it is unclear why, I have discussed with the charge nurse, it is being restarted. 5. Agree with antibiotic prophylaxis in light of variceal hemorrhage. 6. The patient needs to be evaluated for other causes of underlying liver disease. 7. The patient needs to be treated for delirium tremens. PLAN: 1. Restart octreotide. 2. Restart IV fluids. 3. Multivitamin, thiamine, and folate daily. 4. Full liquid diet, advance as tolerated. 5. Serologic workup for underlying liver disease other than alcohol rule out. Job ID: [id number]
--- NOTE | 2020-07-05 00:50 | PQF ---
CLINICAL DOCUMENTATION CLARIFICATION FORM: Dear : Tapan De Luna Date / Time: 07/05/202048 Please exercise your independent, professional judgment in responding to the clarification form. Clinical indicators are provided on the bottom of this form for your review In your clinical opinion based on clinical findings below, can you please identify the etiology of Esophageal Varices with bleeding if due to: Please check appropriate box(es): [ ] Portal hypertension gastropathy [ ] Alcoholic Liver Cirrhosis [ ] Other diagnosis [ ] Unable to determine Physician Signature: Date/Time: For continuity of documentation, please document condition throughout progress notes and discharge summary. Thank You. To be completed by CDI/Coding staff for physician review: Present Clinical Indicators - Signs / Symptoms / Labs Results and Location in Medical Record [X] RBC 3.87, Hgb 12.2, Hct 37.3 Laboratory 07/01 [X] BP 183/90, Pulse 92, Resp 18, Temp 98.3 Vital signs 07/01 [X] Presented with Hematemesis H&P p2 07/01 Dr High [X] Large distal esophageal varices with red cathie sign Operative report Dr Ryan 07/02 [X] Moderately severe portal hypertensive gastropathy that is concerning for cirrhosis when combined with Esopheal varices Operative report Dr Ryan 07/02 [X] Alcoholic Cirrhosis PN p1 07/03 Dr De Luna Present Risk Factors Results and Location in Medical Record [X] HTN H&P p2 07/01 Dr High [X] Hx of PUD H&P p2 07/01 Dr High [X] Alcohol abuse H&P p2 07/01 Dr High [X] Anemia H&P p2 07/01 Dr High [X] Steatoheptosis H&P p2 07/01 Dr High [X] Smoker ED Notes 07/01 Present Treatments Results and Location in Medical Record [X] IV NS 1L DEC 17 [X] IV Protonix 40 mg DEC 17 [X] IV Octreotide acetate 1250 mcg DEC 17 [X] GI consult Juan Manuel Boswell 07/01 [X] EGD with Banding ligation Operative report Dr Ryan 07/02 CDS/Infantry Unit Leader Signature: Vonnie Otooleanne-marie Phone #: [phone] Date/Time: 07/05/202048 This is a permanent part of the Medical Record [facility]
== END 2020-07-03 17:40 | disposition left against medical advice (07) | DRG 369 ==
LOC: ERS 12:13 → SURG B 13:53 → INTOOBSV 13:53 → OBSVTOIN 07-03 09:31
PROVIDERS: ADMIT Family Medicine; ATTEND Family Medicine
PROC: 06L38CZ Occlusion of Esophageal Vein with Extraluminal Device, Via Natural or Artificial Opening Endoscopic (ICD-10-PCS; principal; 2020-07-02)
DX: I85.01 Esophageal varices with bleeding (principal); K76.6 Portal hypertension; F10.239 Alcohol dependence with withdrawal, unspecified; K70.30 Alcoholic cirrhosis of liver without ascites; Z20.828 Contact with and (suspected) exposure to other viral communicable diseases; F17.220 Nicotine dependence, chewing tobacco, uncomplicated; I10 Essential (primary) hypertension; E86.1 Hypovolemia; Y90.4 Blood alcohol level of 80-99 mg/100 ml; F32.9 Major depressive disorder, single episode, unspecified; K76.0 Fatty (change of) liver, not elsewhere classified; K31.89 Other diseases of stomach and duodenum; D64.9 Anemia, unspecified; D69.59 Other secondary thrombocytopenia; E78.5 Hyperlipidemia, unspecified; S71.112A Laceration without foreign body, left thigh, initial encounter; W18.30XA Fall on same level, unspecified, initial encounter; Y92.239 Unspecified place in hospital as the place of occurrence of the external cause; Z18.89 Other specified retained foreign body fragments; Z79.899 Other long term (current) drug therapy
CPT/HCPCS: 36415; 70450; 74177; 80053; 80307; 82105; 83690; 85025; 85610; 85730; 86850; 86900; 86901; 87635; 96361; 96365; 96375; 96376; C9113; G0378; J0696; J2060; J2354; J2704; J3411; J3490; J7042; J7050; Q9967; U0003

== ENCOUNTER 2020-07-20 16:59 | Emergency (ER) | payer SELFPAY ==
--- NOTE | 2020-07-20 17:47 | RAD ---
XR Chest 1 View Portable History: Dizziness with syncope Comparison: Radiograph 2019 Findings: Lungs are clear. No pneumothorax or effusion. Cardiac silhouette and mediastinal contours a re within normal limits. No acute osseous abnormality. Impression: No acute intrathoracic abnormality.
[2020-07-20 17:52] LABS: #Eosinphils 0.2 thou/uL (0.0-0.7); #Monocytes 0.9 thou/uL (0.11-0.59); #Neutrophils 4.3 thou/uL (1.40-6.50); %Basophils 0.6 % (0.0-1.0); %Eosinophils 2.6 % (0.0-10.0); %Lymphocytes 26.8 % (21.0-51.0); %Monocytes 12.1 % (0.0-10.0); %Neutrophils 57.9 % (42.0-75.0); Hemoglobin 12.3 g/dL (14.0-18.0); Mean Corpuscular HGB CONC 34.1 g/dL (32.0-36.0); Mean Corpuscular Hemoglobin 32.7 pg (27.0-31.0); Mean Corpuscular Volume 95.8 fL (78.0-98.0); Mean Platelet Volume 5.5 fL (7.4-10.4); Platelet Count 207 thou/uL (130-400); RBC Distribution Width 13.5 % (11.5-14.5); Red Blood Cell (RBC) Count 3.76 mill/uL (4.70-6.10); White Blood Cell (WBC) Count 7.4 thou/uL (4.8-10.8)
[2020-07-20 18:13] LABS: ALT (SGPT) 18 U/L (8-55); AST (SGOT) 52 U/L (5-34); Albumin 3.4 g/dL (3.5-5.0); Alkaline Phosphatase 256 U/L (40-110); Anion Gap 15 mmol/L (10-20); BUN (Urea Nitrogen) 7 mg/dL (8.4-25.7); Bilirubin, Total 0.4 mg/dL (0.2-1.2); Calc. Creatinine Clearance 0 mL/min (70-130); Calcium 8.5 mg/dL (7.8-10.44); Carbon Dioxide 23 mmol/L (22-29); Chloride 100 mmol/L (98-107); Estimated GFR-MDRD Greater than 90; Globulin 3.6 g/dL (2.4-3.5); Glucose 108 mg/dL (70-105); Potassium 4.1 mmol/L (3.5-5.1); Sodium 134 mmol/L (136-145)
[2020-07-20] MEDS ORDERED: Lidocaine 1% w/Epinephrine 1:100K 20 ML VIAL ONE (18:35)
[2020-07-20 18:43] LABS: Bilirubin Negative (Negative); Blood, Urine Negative (Negative); Clarity Clear (Clear); Glucose, Urine (Dipstick) Normal (Negative); Ketone, Urine Negative (Negative); Leukocyte Negative Leu/uL (Negative); Nitrite Negative (Negative); Protein, Urine (Dipstick) Negative (Neg-Trace); Specific Gravity, Urine 1.003 (1.002-1.036); Urobilinogen Normal mg/dL (Less than 2)
--- NOTE | 2020-07-20 18:57 | CT ---
CT Brain WO Con History: Injury. Comparison: CT brain July 03, 2020 Findings: Mildly advanced for age subcortical and deep white matter microvascular ischemic changes, c hronic. Calvarium is intact. Paranasal sinuses and mastoids are clear. Right supraorbital and periorbital laceration. The right globe appears be intact. No retrobulbar delisa antoine. No acute intracranial hemorrhage or infarct. No midline shift or mass effect. Impression: Right periorbital soft tissue laceration without acute posttraumatic intracranial sequela .
[2020-07-20] MEDS ORDERED: Bacitracin 1 PK ONE (19:57)
[2020-07-20] MEDS ORDERED: Boostrix 0.5 ML VIAL ONE (20:00)
== END 2020-07-20 20:20 | disposition home or self-care (01) ==
LOC: ERS 16:59
DX: S01.81XA Laceration without foreign body of other part of head, initial encounter (principal); F13.10 Sedative, hypnotic or anxiolytic abuse, uncomplicated; F10.129 Alcohol abuse with intoxication, unspecified; I10 Essential (primary) hypertension; E78.5 Hyperlipidemia, unspecified; F32.9 Major depressive disorder, single episode, unspecified; F17.220 Nicotine dependence, chewing tobacco, uncomplicated; Z23 Encounter for immunization; Z79.899 Other long term (current) drug therapy; W01.10XA Fall on same level from slipping, tripping and stumbling with subsequent striking against unspecified object, initial encounter
CPT/HCPCS: 12013; 36415; 70450; 71045; 80053; 81003; 84484; 85025; 90471; 90715; 93005

== ENCOUNTER 2020-12-01 09:32 | Inpatient (IN) | payer OTHER, SELFPAY ==
[2020-12-01 11:12] LABS: Hemoglobin 11.7 g/dL (14.0-18.0); Mean Corpuscular HGB CONC 33.6 g/dL (32.0-36.0); Mean Corpuscular Hemoglobin 29.4 pg (27.0-31.0); Mean Corpuscular Volume 87.5 fL (78.0-98.0); Mean Platelet Volume 7.6 fL (7.4-10.4); Platelet Count 127 thou/uL (130-400); RBC Distribution Width 16.1 % (11.5-14.5); Red Blood Cell (RBC) Count 3.99 mill/uL (4.70-6.10)
[2020-12-01] MEDS ORDERED: Lorazepam 2 MG/ML VIAL ONE (11:29)
[2020-12-01] MEDS ORDERED: Multivitamins, Adult 10 ML, Thiamine HCl 100 MG, Folic Acid 1 MG in Dextrose 5 %-0.45 %... IV SCH (11:30)
[2020-12-01 11:31] LABS: ALT (SGPT) 61 U/L (8-55); AST (SGOT) 152 U/L (5-34); Albumin 3.9 g/dL (3.5-5.0); Alkaline Phosphatase 161 U/L (40-110); Anion Gap 15 mmol/L (10-20); BUN (Urea Nitrogen) 34 mg/dL (8.4-25.7); Bilirubin, Total 3.1 mg/dL (0.2-1.2); Calc. Creatinine Clearance 0 mL/min (70-130); Calcium 9.7 mg/dL (7.8-10.44); Carbon Dioxide 24 mmol/L (22-29); Chloride 96 mmol/L (98-107); Glucose 102 mg/dL (70-105); Potassium 3.4 mmol/L (3.5-5.1); Protein, Total 8.9 g/dL (6.0-8.3); Sodium 132 mmol/L (136-145)
[2020-12-01 11:37] LABS: Anisocytosis SLIGHT = 6-15 cells (100X) (0-5/hpf); Hypochromia SLIGHT = 6-15 cells (100X) (0-5/hpf); Lymphocytes 19 % (21-51); MDiff Complete? YES; Monocytes 24 % (0-10); Neutrophil 57 % (42-75); Platelet Morphology Comment Appears Decreased; Polychromasia SLIGHT = 2-3 cells (100X) (0-2/hpf)
--- NOTE | 2020-12-01 12:09 | PDOC.FPRHP ---
- History of Present Illness Chief Complaint: hallucinations History of Present Illness: 55 yo M here from residential due to hallucinations. Patient was arrested for DWI due to alcohol intoxication last night (11/30) at 1930. As best he can tell us, his last drink was sometime Wednesday. Per staff at residential this morning the patient was calling out for his son and seeing things crawling up the [place]. Pt normally drinks 8 beers/day since 2013. He says he has a history of seizure with alcohol withdrawal. He is somewhat confused and unable to answer all questions appropriately. In the ED he was noted to have hallucinations and was given 2mg ativan along with a banana bag. ED Course: Ativan 2 mg, banana bag - Allergies/Adverse Reactions Allergies Allergy/AdvReac Type Severity Reaction Status Date / Time fexofenadine [From Shawna] Allergy Unknown Verified 12/01/20 19:27 - Home Medications Medication Instructions Recorded Confirmed Type Multivitamin W/ Minerals 1 tab PO DAILY 30 Days #30 tab 07/02/20 12/01/20 Rx [Theragran M] chlordiazePOXIDE HCl [Librium] 12/01/20 History cloNIDine [Catapres] 0.1 mg PO 12/01/20 History - History PMHx: - HTN - chronic alcohol abuse disorder, history of seizures from withdrawal - Anxiety/depression untreated PSHx: - EGD with band ligation 2019 - pancreatic pseudocyst removal FHx: noncontributory, limited due to mental status Social: - drinks [place] beer, about 8 beers per day - smokes and vapes per the folder seamer - unable to tell us much more - Review of Systems ROS unobtainable: due to mental status (limited, waxing/waning mental status) General: denies: fever/chills, weight/appetite/sleep changes Eyes: denies: vision changes ENT: denies: nasal congestion, rhinorrhea Respiratory: denies: cough, shortness of breath Cardiovascular: denies: chest pain, edema Gastrointestinal: denies: nausea, vomiting, abdominal pain Skin: reports: rashes (chronic) Musculoskeletal: denies: pain, tenderness Neurological: denies: seizure, weakness Psychological: denies: anxiety, depression - Vital signs BP: 148/87 HR: 97 RR: 23 Tmax: 97.8 Pox: 97% on RA Wt: 67kg - Physical Exam Constitutional: NAD, awake, alert and oriented (oriented to person and place, not to time) HEENT: normocephalic and atraumatic, PERRLA (pupils around 5 mm), EOMI, grossly normal vision, grossly normal hearing, MMM -HEENT: scleral icterus and injection bilaterally Neck: supple, trachea midline Heart: normal S1/S2, no murmurs/rubs/gallops, pulses present, no edema (tachycardic rate) Lungs: CTAB, no respiratory distress Abdomen: soft, non-tender, no masses/distention Musculoskeletal: normal structure, normal tone Neurological: no focal deficit, CN II-XII intact (DTRs 1+), normal sensation -Neurological: unable to focus well. Skin: other (eczematous and possibly psoriatic lesions on anterior shins b/l) Heme/Lymphatic: no unusual bruising or bleeding, no purpura, no petechia Psychiatric: other (unable to answer some questions, short/prison memory impaired) FMR H&P: Results - Labs Result Diagrams: 12/02/20 04:19 12/02/20 04:19 Lab results: WBC 10.0 thou/uL (4.8-10.8) 12/01/20 10:58 Hgb 11.7 g/dL (14.0-18.0) L 12/01/20 10:58 Hct 34.9 % (42.0-52.0) L 12/01/20 10:58 MCV 87.5 fL (78.0-98.0) 12/01/20 10:58 Plt Count 127 thou/uL (130-400) L 12/01/20 10:58 Sodium 132 mmol/L (136-145) L 12/01/20 10:58 Potassium 3.4 mmol/L (3.5-5.1) L 12/01/20 10:58 Chloride 96 mmol/L (98-107) L 12/01/20 10:58 Carbon Dioxide 24 mmol/L (22-29) 12/01/20 10:58 BUN 34 mg/dL (8.4-25.7) H 12/01/20 10:58 Creatinine 1.21 mg/dL (0.7-1.3) 12/01/20 10:58 Glucose 102 mg/dL (70-105) 12/01/20 10:58 Calcium 9.7 mg/dL (7.8-10.44) 12/01/20 10:58 Total Bilirubin 3.1 mg/dL (0.2-1.2) H 12/01/20 10:58 AST 152 U/L (5-34) H 12/01/20 10:58 ALT 61 U/L (8-55) H 12/01/20 10:58 Alkaline Phosphatase 161 U/L (40-110) H 12/01/20 10:58 Serum Total Protein 8.9 g/dL (6.0-8.3) H 12/01/20 10:58 Albumin 3.9 g/dL (3.5-5.0) 12/01/20 10:58 - EKG Interpretation EKG: reviewed: normal sinus rhythm, mild prolonged QT interval FMR H&P: A/P - Plan 55yo male with hx of alcohol abuse who presents from residential with hallucinations #Acute Alcohol Withdrawal #Alcohol Hallucinosis #Transaminitis #Alcohol Use Disorder -drinks everyday, last drink on 11/30. Pt says he has hx of seizure w/ alcohol withdrawal -ASE score: 14 -s/p 2mg ativan and 10mg diazepam in ED -Brain CT: no acute abnormalities -AST/ALT 152/61, bili 3.1. Plasma Alcohol <10 -pending UDS, Mg, TSH -librium 100mg q6h leandro, ASE protocol including meds as adjunct -admit to tele, if pt worsens, can transfer to [facility] #hx of GI bleed -H/H 11.7/34.9 -seen here in Jun 2020, EGD showed varices. Band ligation done -pt denies vomiting or diarrhea #HTN -unsure if pt has been on any meds -will monitor BP and can start med if needed PCP: Bacak Code: Full VTE Ppx: lovenox, SCDs Diet: regular Dispo: Admit inpatient tele, ASE protocol, FMR H&P: Upper Level - Pertinent history 55 yo M with hx of chronic alcohol abuse disorder brought here by the residential for hallucinations. He was arrested for DWI due to alcohol intoxication. He was arrested at 1930 on 11/30. Patient reports he drinks 8 [place] beers per day usually. Patient reports he has had seizures with withdrawal, but his mentation is waxing and waning on exam. Review of his records show he has a history of GI bleed requiring EGD with banding and blood transfusion. Otherwise, PMHx includes HTN, anxiety, depression. - Pertinent findings Vital signs: Hypertensive, mildly tachycardic 90-100s. satting well on room air ASE score: 14 on our examination Neuro exam: CN 2-12 intact, having visual hallucinations but no insight that these are hallucinations, pupils about 5mm and reactive, EOMI, but has trouble tracking, no nystagmus. DTRs 1+. Psych: alert and oriented x2 Heart: no murmur Lungs: CTAB - Plan Date/Time: 12/01/20 1209 Alcohol hallucinosis - history of chronic alcohol abuse disorder - ASE protocol, diazepam for breakthrough - will start scheduled chlordiazepoxide and proceed with taper - Fall precautions, Seizure precautions - telemetry - electrolyte replacement and vitamin supplementation Transaminitis - 3X higher than visit here 4 months ago - trend - previous hepatitis workup neg, consider sono. Pt has history of steatosis HTN - monitor, when pt is more lucid, will confirm medications and restart home meds Anxiety, depression - monitor Dispo: inpatient, telemetry. ELOS>48H Diet: Regular VTE ppx: lovenox ppx GI ppx: none. Social: in residential for DWI, may need CM for plan to discharge back to residential. IPaula, PGY2, have evaluated this patient and agree with findings/plan as outlined by general intern resident. Pertinent changes/additions are listed above. Addendum - Attending - Attending Attestation Date/Time: 12/01/20 7014 I personally evaluated the patient and discussed the management with Dr. Juan. I agree with the History, Examination, Assessment and Plan documented above with any addition or exceptions noted below. The patient is admitting with alcohol withdrawal and hallucinations. Will start librium, ase protocol. Labs consistent with alcoholic hepatitis.
[2020-12-01] MEDS ORDERED: Ondansetron PF 4 MG/2 ML Vial IVP PRN (13:05)
[2020-12-01] MEDS ORDERED: Ondansetron ODT 4 MG TAB PO PRN (13:05)
[2020-12-01] MEDS ORDERED: Acetaminophen 325 MG TAB PO PRN (13:05)
--- NOTE | 2020-12-01 13:06 | CT ---
CT OF BRAIN PERFORMED WITHOUT CONTRAST ENHANCEMENT: HISTORY: Altered mental status. COMPARISON: 07/20/2020 exam. FINDINGS: There is moderate atrophy and chronic white matter changes seen. These are similar in appearance to the previous exam. There are no signs of intracerebral hemorrhage or extraaxial fluid collections. Mastoid air cells and visualized sinuses are clear. IMPRESSION: No acute intracranial abnormalities. POS: OFF
[2020-12-01] MEDS ORDERED: Diazepam 5 MG TAB PO PRN (13:25)
[2020-12-01] MEDS ORDERED: Thiamine HCl 200 MG/2 ML VIAL IM SCH ×2 (13:30→19:00)
[2020-12-01] MEDS ORDERED: Diazepam 5 MG TAB PO SCH (13:30)
[2020-12-01 14:20] LABS: Bacteria/HPF None Seen HPF (None Seen); Bilirubin Negative (Negative); Blood, Urine 1+ (Negative); Clarity Clear (Clear); Glucose, Urine (Dipstick) Normal (Negative); Ketone, Urine 10 mg/dL (Negative); Leukocyte Negative Leu/uL (Negative); Nitrite Negative (Negative); Protein, Urine (Dipstick) 10 mg/dL (Neg-Trace); Specific Gravity, Urine 1.018 (1.002-1.036); Squamous Epithelial None Seen HPF (0-3); Urobilinogen 3 mg/dL (Less than 2); WBC/HPF 0-3 HPF (0-3); pH, Urine 5.5 (5.0-9.0)
[2020-12-01] MEDS ORDERED: Diazepam 5 MG TAB ONE (14:21)
[2020-12-01 14:30] LABS: Amphetamine Not Detected (NotDetected); Barbiturates Screen Not Detected (NotDetected); Benzodiazepine Screen Detected (NotDetected); Cocaine Metabolite Screen Not Detected (NotDetected); Medtox Control Line Valid? VALID (VALID); Medtox Reader # READER 1; Methadone Not Detected (NotDetected); Methamphetamine Not Detected (NotDetected); Opiate Screen Not Detected (NotDetected); Oxycodone Screen Not Detected (NotDetected); Phencyclidine (PCP) Not Detected (NotDetected); THC/Cannabinoid Screen Not Detected (NotDetected); Tricyclic Screen Not Detected (NotDetected)
[2020-12-01] MEDS ORDERED: Magnesium 2 GM/50 ML BAG (IN WATER) ONE (16:12)
[2020-12-01] MEDS: chlordiazePOXIDE HCl 25 MG CAP PO SCH ×2 (17:35→17:47)
[2020-12-01] MEDS ORDERED: chlordiazePOXIDE HCl 25 MG CAP PO SCH (18:00)
[2020-12-01] MEDS: Lorazepam 2 MG/ML VIAL SLOW IVP SCH (20:37)
[2020-12-02] MEDS: Lorazepam 2 MG/ML VIAL SLOW IVP SCH ×4 (00:11→13:22)
[2020-12-02] MEDS: Lorazepam 2 MG/ML VIAL SLOW IVP PRN ×4 (01:40→21:28)
[2020-12-02] MEDS ORDERED: Diazepam 5 MG TAB PO PRN (04:00)
[2020-12-02 04:53] LABS: Hemoglobin 11.6 g/dL (14.0-18.0); Mean Corpuscular HGB CONC 32.9 g/dL (32.0-36.0); Mean Corpuscular Hemoglobin 29.4 pg (27.0-31.0); Mean Corpuscular Volume 89.3 fL (78.0-98.0); Mean Platelet Volume 7.8 fL (7.4-10.4); Platelet Count 117 thou/uL (130-400); RBC Distribution Width 16.3 % (11.5-14.5); Red Blood Cell (RBC) Count 3.95 mill/uL (4.70-6.10); White Blood Cell (WBC) Count 7.7 thou/uL (4.8-10.8)
[2020-12-02 05:03] LABS: ALT (SGPT) 56 U/L (8-55); AST (SGOT) 138 U/L (5-34); Albumin 3.5 g/dL (3.5-5.0); Alkaline Phosphatase 151 U/L (40-110); Anion Gap 13 mmol/L (10-20); BUN (Urea Nitrogen) 20 mg/dL (8.4-25.7); Bilirubin, Total 2.6 mg/dL (0.2-1.2); Calc. Creatinine Clearance 83 mL/min (70-130); Calcium 8.9 mg/dL (7.8-10.44); Carbon Dioxide 23 mmol/L (22-29); Chloride 101 mmol/L (98-107); Globulin 4.5 g/dL (2.4-3.5); Glucose 98 mg/dL (70-105); Potassium 3.2 mmol/L (3.5-5.1); Sodium 134 mmol/L (136-145)
[2020-12-02 05:20] LABS: Band 19 % (5-11); Lymphocytes 10 % (21-51); MDiff Complete? YES; Monocytes 26 % (0-10); Neutrophil 45 % (42-75); Platelet Morphology Comment Appears Decreased
[2020-12-02 06:01] LABS: Phosphorus 2.5 mg/dL (2.3-4.7)
--- NOTE | 2020-12-02 08:08 | PDOC.FM ---
- Subjective Subjective: Patient A&O X2, became tearful during interview because he's scared of what's going on. Only complaint this AM is his wrist and ankle restraints. He was able to tell me the year, his name and that he was arrested for "weaving" while driving. He reports that he drinks etoh everyday but could not tell me how much. Overnight, ASE scores relatively stable ~10 until this AM when scores reached maximum of 15. Patient was chewing up and spitting out pills, medications switched to IV. Denies CP, dyspnea, Nausea/vomiting - Objective MAR Reviewed: Yes Vital Signs & Weight: Vital Signs (12 hours) Temp Pulse Resp BP BP Pulse Ox 12/02/20 07:40 99.6 F 82 16 130/67 94 L 12/02/20 05:55 147/74 H 12/02/20 04:54 124/69 12/02/20 03:47 98.8 F 96 16 133/64 133/64 96 12/02/20 02:52 132/70 12/02/20 01:11 129/67 12/02/20 00:00 138/66 12/01/20 23:56 98.2 F 85 13 138/66 96 12/01/20 21:44 127/59 L Weight Weight 63.503 kg Result Diagrams: 12/02/20 04:19 12/02/20 04:19 Phys Exam - Physical Examination lying in bed, shackles on ankles, soft restraints on wrists disheveled appearance Respiratory: no wheezing, no rales, no rhonchi, clear to auscultation bilateral Cardiovascular: RRR, no significant murmur, no rub Gastrointestinal: soft, non-tender, no distention, positive bowel sounds Musculoskeletal: no edema, pulses present Intermittent generalized tremulousness, A&OX2, unaware of location Deviation from normal: Anxious appearing, tearful Dx/Plan - Plan Plan: 55yo male with hx of alcohol abuse who presents from retirement with hallucinations Acute Alcohol Withdrawal Alcohol Hallucinosis Transaminitis Alcohol Use Disorder - drinks everyday, last drink on 11/30. On admission, patient reported hx of seizures with withdrawal, denies on repeat exam - 2 mg Ativan IV Q4H MALENA, Q1h PRN - UDS negative except for benzo - Continue ASE protocol - Would like to get bedside swallow and try to transition patient to PO medications - 1 L LR with K+, IV thiamine, will give PO folic acid after swallow study improves Hypokalemia - 3.2 on AM labs - Will replete with 40 mEq Hx of GI bleed -H/H stable -seen here in Jun 2020, EGD showed varices. Band ligation done -pt denies vomiting or diarrhea HTN -unsure if pt has been on any meds -will monitor BP and can start med if needed PCP: Shayan Code: Full VTE Ppx: lovenox, SCDs Diet: regular Dispo: Admitted inpatient tele, continue ASE protocol. Addendum - Attending - Attending Attestation Date/Time: 12/02/20 1317 I personally evaluated the patient and discussed the management with Dr. De La Cruz. I agree with the History, Examination, Assessment and Plan documented above with any addition or exceptions noted below. Will attempt to restart PO librium. patient sleeping during rounds. Once withdrawal sx controlled with PO meds, can d/c back to retirement.
[2020-12-02] MEDS ORDERED: Multivitamin W/ Minerals 1 TAB PO SCH (09:00)
[2020-12-02] MEDS ORDERED: Magnesium Oxide 400 MG TAB PO SCH (09:00)
[2020-12-02] MEDS ORDERED: Folic Acid 1 MG TAB PO SCH (09:00)
[2020-12-02] MEDS ORDERED: Thiamine 100 MG TAB PO SCH (09:00)
[2020-12-02] MEDS ORDERED: Potassium Chloride 40 MEQ in Lactated Ringer's 1,000 ML IV SCH (10:00)
[2020-12-02] MEDS: Folic Acid 1 MG TAB PO SCH (11:14)
[2020-12-02] MEDS: Magnesium Oxide 400 MG TAB PO SCH (11:14)
[2020-12-02] MEDS: Thiamine 100 MG TAB PO SCH (11:14)
[2020-12-02] MEDS: Multivitamin W/ Minerals 1 TAB PO SCH (11:14)
[2020-12-02] MEDS: Enoxaparin Sodium 40 MG/0.4 ML SYRINGE SC SCH (11:15)
[2020-12-02] MEDS ORDERED: chlordiazePOXIDE HCl 25 MG CAP PO SCH ×3 (14:00→18:00)
--- NOTE | 2020-12-02 16:16 | PQF ---
Q22 2018 [facility] Updated: CLINICAL DOCUMENTATION CLARIFICATION FORM: Please check appropriate box(es): [ X ] Encephalopathy: Type: [ x ] Acute [ ] Subacute [ ] Chronic Etiology: [ X] due to Alcohol withdrawal [ ] In the setting of underlying dementia [ ] Unspecified [ ] Other (please specify) [ ] Transient Alteration of Awareness [ ] Other diagnosis [ ] Unable to determine In addition, please specify: Present on Admission (POA): [ X ] Yes [ ] No [ ] Unable to determine To be completed by CDI/Coding staff for physician review: Present Clinical Indicators - Signs / Symptoms / Labs Results and Location in Medical Record [x ] Altered mental status / confusion (i.e.: improving once underlying cause is corrected) Patient A&O x2, became tearful during interview because hes scared of whats going on per 12/02 PN([place]) [x ] ASE score of 15 12/02 PN([place]) [ ] Present Risk Factors Results and Location in Medical Record [x ] Acute alcohol withdrawal and Alcohol hallucinosis 12/02 PN(Dorothy) Present Treatments Results and Location in Medical Record [ x ] Restraints wrist and ankle restraints per 12/02 PN(Dorothy) [x ] ASE protocol 12/01 orders CDS/Covered Buckle Assembler Signature: Rosibel Ram RN, CCDS Phone #: [phone] Date/Time: 12/02/2020 4:13 PM This is a permanent part of the Medical Record [facility]
[2020-12-02] MEDS: chlordiazePOXIDE HCl 25 MG CAP PO SCH (17:56)
[2020-12-03] MEDS: chlordiazePOXIDE HCl 25 MG CAP PO SCH ×2 (00:12→06:06)
[2020-12-03 05:38] VITALS: BMI 22.4
--- NOTE | 2020-12-03 06:05 | PDOC.FM ---
- Subjective Subjective: Patient feeling well this AM, no acute concerns. Overnight, ASE scores decreased to <10. Patient denies CP, SOB, N/V. - Objective MAR Reviewed: Yes Vital Signs & Weight: Vital Signs (12 hours) Temp Pulse Resp BP BP Pulse Ox 12/03/20 04:00 153/82 H 12/03/20 03:54 97.4 F L 75 13 153/82 H 97 12/03/20 00:00 150/81 H 12/02/20 22:45 98.4 F 92 13 150/81 H 150/81 H 95 12/02/20 20:10 98.4 F 84 16 156/82 H 156/82 H 96 Weight Admit Weight 63.503 kg Weight 66.996 kg I&O: 12/01/20 12/02/20 12/03/20 06:59 06:59 06:59 Intake Total 2250 Output Total 450 Balance 1800 Result Diagrams: 12/03/20 06:44 12/03/20 06:44 Phys Exam - Physical Examination Constitutional: NAD disheveled appearance Respiratory: no wheezing, no rales, no rhonchi, clear to auscultation bilateral Cardiovascular: RRR, no significant murmur, no rub Gastrointestinal: soft, non-tender, no distention, positive bowel sounds Musculoskeletal: no edema Neurological: non-focal, moves all 4 limbs Deviation from normal: Flat affect Deviation from normal: diaphoretic Dx/Plan - Plan Plan: 55yo male with hx of alcohol abuse who presents from senior care with hallucinations Acute Alcohol Withdrawal Alcohol Hallucinosis Transaminitis Alcohol Use Disorder - drinks everyday, last drink on 11/30. On admission, patient reported hx of seizures with withdrawal, denies on repeat exam - Decrease Librium taper to 25 mg Q6h - UDS negative except for benzo - Continue ASE protocol - PO vitamins - electrolyte repletion PRN-recheck K+ Hypokalemia - Recheck today Hx of GI bleed -H/H stable -seen here in Jun 2020, EGD showed varices. Band ligation done -pt denies vomiting or diarrhea HTN -unsure if pt has been on any meds -will monitor BP and can start med if needed PCP: Shayan Code: Full VTE Ppx: lovenox, SCDs Diet: regular Dispo: Admitted inpatient tele, continue ASE protocol. Addendum - Attending - Attending Attestation Date/Time: 12/03/20 1248 I personally evaluated the patient and discussed the management with Dr. dos santos. I agree with the History, Examination, Assessment and Plan documented above with any addition or exceptions noted below. He is still fatigued this morning but much more awake and alert than yesterday. Decrease librium to 50 mg TID. If more alert this afternoon, will d/c to senior care on librium taper. Told patient to take while in senior care but when he is released, he needs to either continue taper if he wants to stop alcohol use or d/c librium and continue alcohol use but not both. Possible d/c this afternoon. if no d/c will move to medical bed.
[2020-12-03 07:10] LABS: Hemoglobin 11.4 g/dL (14.0-18.0); Mean Corpuscular HGB CONC 32.9 g/dL (32.0-36.0); Mean Corpuscular Hemoglobin 30.4 pg (27.0-31.0); Mean Corpuscular Volume 92.6 fL (78.0-98.0); Mean Platelet Volume 7.6 fL (7.4-10.4); Platelet Count 116 thou/uL (130-400); Red Blood Cell (RBC) Count 3.75 mill/uL (4.70-6.10); White Blood Cell (WBC) Count 7.9 thou/uL (4.8-10.8)
[2020-12-03 07:27] LABS: ALT (SGPT) 50 U/L (8-55); AST (SGOT) 116 U/L (5-34); Albumin 3.1 g/dL (3.5-5.0); Alkaline Phosphatase 152 U/L (40-110); Anion Gap 13 mmol/L (10-20); BUN (Urea Nitrogen) 14 mg/dL (8.4-25.7); Bilirubin, Total 2.3 mg/dL (0.2-1.2); Calc. Creatinine Clearance 104 mL/min (70-130); Calcium 8.5 mg/dL (7.8-10.44); Carbon Dioxide 22 mmol/L (22-29); Chloride 102 mmol/L (98-107); Globulin 4.3 g/dL (2.4-3.5); Glucose 91 mg/dL (70-105); Potassium 3.4 mmol/L (3.5-5.1); Protein, Total 7.4 g/dL (6.0-8.3); Sodium 134 mmol/L (136-145)
[2020-12-03 08:59] LABS: Band 7 % (5-11); Eosinophils 2 % (0-10); Lymphocytes 16 % (21-51); MDiff Complete? YES; Monocytes 23 % (0-10); Neutrophil 52 % (42-75); Platelet Morphology Comment Appears Decreased; Polychromasia SLIGHT = 2-3 cells (100X) (0-2/hpf)
[2020-12-03] MEDS: Multivitamin W/ Minerals 1 TAB PO SCH (09:36)
[2020-12-03] MEDS: Enoxaparin Sodium 40 MG/0.4 ML SYRINGE SC SCH (09:36)
[2020-12-03] MEDS: Folic Acid 1 MG TAB PO SCH (09:37)
[2020-12-03] MEDS: Magnesium Oxide 400 MG TAB PO SCH (09:37)
[2020-12-03] MEDS: Thiamine 100 MG TAB PO SCH (09:40)
[2020-12-03] MEDS ORDERED: Potassium Chloride 20 MEQ TAB PO SCH (10:15)
[2020-12-03] MEDS ORDERED: Lisinopril 10 MG TAB PO SCH (10:30)
[2020-12-03] MEDS ORDERED: chlordiazePOXIDE HCl 25 MG CAP PO SCH ×3 (12:00→14:00)
[2020-12-03 15:13] VITALS: BP 128/69; TEMP 98.5
[2020-12-03 19:36] LABS: SARS-CoV-2 PCR by NAA Not Detected (NotDetected)
[2020-12-04] MEDS ORDERED: Lisinopril 10 MG TAB PO SCH (09:00)
--- NOTE | 2020-12-04 11:53 | DIS ---
DATE OF ADMISSION: 12/01/2020 DATE OF DISCHARGE: 12/03/2020 ADMITTING ATTENDING: Dr. Miller. DISCHARGE ATTENDING: Dr. Nuno. RESIDENT: Sorin De La Cruz MD CONSULTS: None. PROCEDURES: The patient had a brain CT showing no acute intracranial abnormalities. PRIMARY DIAGNOSIS: Alcohol withdrawal. SECONDARY DIAGNOSES: 1. Alcohol hallucinosis. 2. Transaminitis. 3. Alcohol use disorder. 4. Hypokalemia. 5. History of gastrointestinal bleed. 6. Hypertension. DISCHARGE MEDICATIONS: 1. Tylenol 650 mg p.o. q.4 hours p.r.n. 2. Librium 25 mg p.o. as directed per taper, 56 capsules. 3. Folic acid 1 mg p.o. daily. 4. Lisinopril 10 mg p.o. daily. 5. Magnesium oxide 400 mg p.o. daily. 6. Multivitamin one tablet p.o. daily. 7. Thiamine 100 mg p.o. daily. DISCONTINUED MEDICATIONS: 1. Clonidine. 2. Home Librium prescription. HISTORY OF PRESENT ILLNESS/HOSPITAL COURSE: The patient is a 55-year-old male with a history of alcohol use disorder with hypertension, who came in due to hallucinations and altered mental status. The patient was arrested due to DWI on 11/30 and came in on 12/01 due to calling out for his son and seeing things crawling up the [place]. The patient reported drinking eight beers a day since approximately 2013. The patient initially reported that he had history of seizures with alcohol withdrawal. However, on repeat examination during hospital stay, the patient denied seizures with withdrawal, but does endorse shaking and withdrawal symptoms previously. The patient was placed in soft restraints for beginning of hospital stay due to agitation. The patient was given IV benzodiazepines on taper for alcohol withdrawal symptoms and was eventually transferred to p.o. Librium taper. The patient reported that he had previously been on Librium with alcohol withdrawals. The patient was monitored using ASE scores with improving ASE scores as hospital stay progressed. At discharge, ASE scores were 5. Instructed the patient to continue taking Librium if he wishes to stop drinking. Also counseled the patient to stop Librium if he decides to start drinking again. Encouraged alcohol cessation multiple times through the hospital stay with the patient. DISPOSITION: Stable. DISCHARGE INSTRUCTIONS: 1. Location: Return to snf. 2. Diet: Heart healthy. 3. Activity: As tolerated. 4. Followup: The patient should follow up with PCP or snf physician within two weeks to reassess progress of Librium taper and adjust as needed. Job ID: [id number]
== END 2020-12-03 16:44 | DRG 897 ==
LOC: ERS 09:32 → EEVIPCON 09:32 → ERHOLD 12:14 → 2NO 16:23
PROVIDERS: ADMIT Family Medicine; ATTEND Family Medicine
PROC: HZ2ZZZZ Detoxification Services for Substance Abuse Treatment (ICD-10-PCS; principal; 2020-12-01)
DX: F10.239 Alcohol dependence with withdrawal, unspecified (principal); F10.251 Alcohol dependence with alcohol-induced psychotic disorder with hallucinations; E87.6 Hypokalemia; F10.229 Alcohol dependence with intoxication, unspecified; I10 Essential (primary) hypertension; E78.5 Hyperlipidemia, unspecified; F41.9 Anxiety disorder, unspecified; F17.210 Nicotine dependence, cigarettes, uncomplicated; R74.01 Elevation of levels of liver transaminase levels; K70.10 Alcoholic hepatitis without ascites; F32.9 Major depressive disorder, single episode, unspecified; G31.2 Degeneration of nervous system due to alcohol; Z20.822 Contact with and (suspected) exposure to COVID-19; R41.0 Disorientation, unspecified; Z79.899 Other long term (current) drug therapy; Z88.8 Allergy status to other drugs, medicaments and biological substances; Z98.890 Other specified postprocedural states; Z78.1 Physical restraint status
CPT/HCPCS: 36415; 70450; 80053; 80306; 80307; 81003; 81015; 82140; 83735; 84100; 84443; 85025; 87635; 93005; 96365; 96366; 96375; J1650; J2060; J3411; J3475; J3490; J7042; J7120; U0003; U0005

== ENCOUNTER 2020-12-10 14:14 | Emergency (ER) | payer OTHER, SELFPAY ==
[2020-12-10 15:57] LABS: #Basophils 0.1 thou/uL (0.0-0.2); #Eosinphils 0.1 thou/uL (0.0-0.7); #Lymphocytes 1.6 thou/uL (1.20-3.40); #Neutrophils 4.1 thou/uL (1.40-6.50); %Basophils 1.2 % (0.0-1.0); %Eosinophils 1.3 % (0.0-10.0); %Lymphocytes 22.9 % (21.0-51.0); %Monocytes 14.7 % (0.0-10.0); Hemoglobin 11.6 g/dL (14.0-18.0); Mean Corpuscular HGB CONC 31.5 g/dL (32.0-36.0); Mean Corpuscular Volume 95.3 fL (78.0-98.0); Mean Platelet Volume 7.2 fL (7.4-10.4); Platelet Count 233 thou/uL (130-400); RBC Distribution Width 16.7 % (11.5-14.5); Red Blood Cell (RBC) Count 3.87 mill/uL (4.70-6.10); White Blood Cell (WBC) Count 6.9 thou/uL (4.8-10.8)
[2020-12-10 16:03] LABS: INR-International Normal Ratio 1.1; PTT 27.4 sec (22.9-36.1); Prothrombin Time 14.3 sec (12.0-14.7)
--- NOTE | 2020-12-10 16:06 | CT ---
EXAM: Brain CTWithout contrast: HISTORY: Altered mental status COMPARISON: 12/01/2020 FINDINGS: Bilateral atrophy and chronic white matter ischemic change. No focal mass or midline shift. No intra or extra-axial hemorrhage. Sinuses and mastoids are clear of acute process. IMPRESSION: No mass or bleed or other significant acute intracranial process. Stable exam.
[2020-12-10 16:19] LABS: ALT (SGPT) 64 U/L (8-55); AST (SGOT) 111 U/L (5-34); Albumin 3.3 g/dL (3.5-5.0); Alkaline Phosphatase 173 U/L (40-110); Anion Gap 12 mmol/L (10-20); BUN (Urea Nitrogen) 14 mg/dL (8.4-25.7); Bilirubin, Total 1.7 mg/dL (0.2-1.2); Calc. Creatinine Clearance 0 mL/min (70-130); Calcium 9.2 mg/dL (7.8-10.44); Carbon Dioxide 25 mmol/L (22-29); Chloride 103 mmol/L (98-107); Globulin 4.6 g/dL (2.4-3.5); Glucose 82 mg/dL (70-105); Potassium 4.2 mmol/L (3.5-5.1); Protein, Total 7.9 g/dL (6.0-8.3); Sodium 136 mmol/L (136-145)
[2020-12-12 18:37] LABS: Chlordiazepoxide Level 2.7 ug/mL (.); Norchlordiazepoxide 1.8 ug/mL (.); Nordiazepam 0.2 ug/mL (.); Sum of Metabolites 4.7 ug/mL (0.4-3.0)
--- NOTE | 2020-12-14 10:26 | EKG ---
Test Reason : Blood Pressure : / mmHG Vent. Rate : 068 BPM Atrial Rate : 068 BPM P-R Int : 128 ms QRS Dur : 096 ms QT Int : 422 ms P-R-T Axes : 022 -07 001 degrees QTc Int : 448 ms Normal sinus rhythm Normal ECG Confirmed by WILBERTO LEAVITT, VIRGILIO Cortes ([id number]), photo editor JONAH MILLER ([id number]) on 12/14/2020 10:25:54 AM Referred By: Confirmed By:VIRGILIO LADD MD
== END 2020-12-10 17:37 ==
LOC: ERS 14:14
DX: F43.20 Adjustment disorder, unspecified (principal); E78.5 Hyperlipidemia, unspecified; I10 Essential (primary) hypertension; K74.60 Unspecified cirrhosis of liver; F17.210 Nicotine dependence, cigarettes, uncomplicated; Z79.899 Other long term (current) drug therapy
CPT/HCPCS: 36415; 70450; 80053; 80346; 82140; 85025; 85610; 85730; 93005; 94760; G0480

== ENCOUNTER 2021-08-16 20:42 | Emergency (ER) | payer SELFPAY ==
[2021-08-16] MEDS ORDERED: HYDROcodone/Acetaminophen 10/325 mg Tablet ONE (22:34)
== END 2021-08-17 02:48 | disposition home or self-care (01) ==
LOC: ERS 20:42
DX: M25.511 Pain in right shoulder (principal); E78.5 Hyperlipidemia, unspecified; I10 Essential (primary) hypertension; F17.220 Nicotine dependence, chewing tobacco, uncomplicated; W19.XXXA Unspecified fall, initial encounter; Z79.899 Other long term (current) drug therapy

== ENCOUNTER 2022-06-22 07:42 | Emergency (ER) | payer SELFPAY ==
[2022-06-22] MEDS ORDERED: diphenhydrAMINE 25 MG CAP ONE (08:07)
[2022-06-22] MEDS ORDERED: Acetaminophen 500 MG TAB ONE (08:07)
[2022-06-22] MEDS ORDERED: Metoclopramide HCl 10 MG TAB ONE (08:07)
[2022-06-22 08:48] LABS: #Basophils 0.2 thou/uL (0.0-0.2); #Eosinphils 0.2 thou/uL (0.0-0.7); #Monocytes 0.9 thou/uL (0.11-0.59); #Neutrophils 7.6 thou/uL (1.40-6.50); %Basophils 1.3 % (0.0-1.0); %Eosinophils 1.8 % (0.0-10.0); %Lymphocytes 25.1 % (21.0-51.0); %Monocytes 7.9 % (0.0-10.0); %Neutrophils 63.9 % (42.0-75.0); Hemoglobin 17.3 g/dL (14.0-18.0); Mean Corpuscular Hemoglobin 31.7 pg (27.0-31.0); Mean Corpuscular Volume 93.3 fL (78.0-98.0); Mean Platelet Volume 5.9 fL (7.4-10.4); Platelet Count 240 thou/uL (130-400); RBC Distribution Width 12.8 % (11.5-14.5); Red Blood Cell (RBC) Count 5.47 mill/uL (4.70-6.10); White Blood Cell (WBC) Count 11.8 thou/uL (4.8-10.8)
[2022-06-22 09:15] LABS: ALT (SGPT) 25 U/L (8-55); AST (SGOT) 41 U/L (5-34); Albumin 4.3 g/dL (3.5-5.0); Alkaline Phosphatase 143 U/L (40-110); Anion Gap 17 mmol/L (10-20); BUN (Urea Nitrogen) 7 mg/dL (8.4-25.7); Calc. Creatinine Clearance 0 mL/min (70-130); Calcium 9.3 mg/dL (7.8-10.44); Carbon Dioxide 26 mmol/L (22-29); Chloride 102 mmol/L (98-107); Estimated GFR 91; Globulin 3.8 g/dL (2.4-3.5); Glucose 72 mg/dL (70-105); Potassium 4.5 mmol/L (3.5-5.1); Protein, Total 8.1 g/dL (6.0-8.3); Sodium 140 mmol/L (136-145)
== END 2022-06-22 10:15 | disposition home or self-care (01) ==
LOC: ERS 07:42
DX: I10 Essential (primary) hypertension (principal); R51.9 Headache, unspecified; E78.5 Hyperlipidemia, unspecified; F17.220 Nicotine dependence, chewing tobacco, uncomplicated
CPT/HCPCS: 36415; 71045; 80053; 84484; 85025; 93005

== ENCOUNTER 2022-06-24 08:29 | Emergency (ER) | payer SELFPAY ==
[2022-06-24] MEDS ORDERED: cloNIDine 0.1 MG TAB ONE (09:06)
[2022-06-24] MEDS ORDERED: Atenolol 50 MG TAB PO SCH (09:15)
== END 2022-06-24 11:00 | disposition home or self-care (01) ==
LOC: ERS 08:29
DX: I10 Essential (primary) hypertension (principal); E78.5 Hyperlipidemia, unspecified; F17.290 Nicotine dependence, other tobacco product, uncomplicated
CPT/HCPCS: 99283

== ENCOUNTER 2022-11-08 22:28 | Emergency (ER) | payer SELFPAY ==
[2022-11-08 23:34] LABS: Hemoglobin 15.8 g/dL (14.0-18.0); Mean Corpuscular HGB CONC 33.7 g/dL (32.0-36.0); Mean Corpuscular Hemoglobin 32.2 pg (27.0-31.0); Mean Corpuscular Volume 95.7 fl (78.0-98.0); RBC Distribution Width 13.8 % (11.5-14.5); Red Blood Cell (RBC) Count 4.92 mill/uL (4.70-6.10); White Blood Cell (WBC) Count 5.5 10x3/uL (4.8-10.8)
[2022-11-08 23:41] LABS: ALT (SGPT) 63 U/L (8-55); AST (SGOT) 107 U/L (5-34); Alkaline Phosphatase 183 U/L (40-110); Anion Gap 16 mmol/L (10-20); BUN (Urea Nitrogen) 9 mg/dL (8.4-25.7); Bilirubin, Total 0.7 mg/dL (0.2-1.2); Calc. Creatinine Clearance 0 mL/min (70-130); Calcium 9.5 mg/dL (7.8-10.44); Carbon Dioxide 23 mmol/L (22-29); Chloride 107 mmol/L (98-107); Estimated GFR 102; Glucose 122 mg/dL (70-105); Potassium 3.9 mmol/L (3.5-5.1); Sodium 142 mmol/L (136-145)
[2022-11-09 00:18] LABS: Band 2 % (5-11); Eosinophils 2 % (0-10); Lymphocytes 26 % (21-51); MDiff Complete? YES; Mean Platelet Volume 6.8 fL (7.4-10.4); Monocytes 16 % (0-10); Neutrophil 53 % (42-75); Platelet Count 107 10x3/uL (130-400); Platelet Morphology Comment Appears Decreased
[2022-11-09] MEDS ORDERED: cloNIDine 0.1 MG TAB ONE (00:19)
== END 2022-11-09 00:03 | disposition left against medical advice (07) ==
LOC: ERS 22:28
DX: I10 Essential (primary) hypertension (principal); R00.2 Palpitations; R00.0 Tachycardia, unspecified; E78.5 Hyperlipidemia, unspecified
CPT/HCPCS: 36415; 70450; 71045; 80053; 84443; 84484; 85025; 93005

== ENCOUNTER 2024-03-28 00:56 | Observation (INO) | payer OTHER, SELFPAY ==
[2024-03-28 02:02] LABS: #Basophils 0.04 10x3/uL (0.0-0.2); %Basophils 0.5 % (0.0-1.0); %Eosinophils 0.4 % (0.0-10.0); %Lymphocytes 13.6 % (21.0-51.0); %Monocytes 11.2 % (0.0-10.0); %Neutrophils 74.1 % (42.0-75.0); Hematocrit 43.7 % (42.0-52.0); Hemoglobin 15.3 g/dL (14.0-18.0); Mean Corpuscular Hemoglobin 32.6 pg (27.0-31.0); Mean Corpuscular Volume 93.2 fL (78.0-98.0); Mean Platelet Volume 9.2 fL (7.4-10.4); Platelet Count 109 10x3/uL (130-400); RBC Distribution Width 17.2 % (11.5-14.5); Red Blood Cell (RBC) Count 4.69 mill/uL (4.70-6.10)
[2024-03-28 02:16] LABS: ALT (SGPT) 46 U/L (8-55); AST (SGOT) 118 U/L (5-34); Albumin 3.5 g/dL (3.5-5.0); Alkaline Phosphatase 213 U/L (40-110); Anion Gap 17 mmol/L (10-20); BUN (Urea Nitrogen) 4 mg/dL (8.4-25.7); Bilirubin, Total 2.3 mg/dL (0.2-1.2); Calc. Creatinine Clearance 0 mL/min (70-130); Calcium 9.7 mg/dL (7.8-10.44); Carbon Dioxide 21 mmol/L (22-29); Chloride 105 mmol/L (98-107); Estimated GFR 103; Globulin 5.1 g/dL (2.4-3.5); Glucose 119 mg/dL (70-105); Potassium 3.8 mmol/L (3.5-5.1); Protein, Total 8.6 g/dL (6.0-8.3); Sodium 139 mmol/L (136-145)
[2024-03-28 02:20] LABS: Troponin I 0.071 ng/mL (< 0.028)
[2024-03-28 02:47] LABS: Platelet Adequacy Comment Platelets Decreased; RBC Morphology Within Normal Limits
[2024-03-28] MEDS ORDERED: Aspirin Chewable 81 MG TAB ONE (03:09)
[2024-03-28] MEDS ORDERED: LORazepam 2 MG/ML SYR.(CARPUJECT) ONE (03:09)
[2024-03-28] MEDS ORDERED: cloNIDine 0.1 MG TAB ONE (03:09)
[2024-03-28] MEDS ORDERED: dilTIAZem 25 MG/5 ML VIAL ONE (03:10)
[2024-03-28] MEDS ORDERED: niCARdipine 25 MG/10 ML SDV ONE (03:10)
[2024-03-28 05:03] LABS: Bacteria/HPF None Seen HPF (None Seen); Bilirubin Negative (Negative); Blood, Urine Negative (Negative); CAUTI Indications for Culture Dysuria,urgency,freq; Clarity Clear (Clear); Glucose, Urine (Dipstick) Normal (Negative); Ketone, Urine Negative (Negative); Leukocyte Negative Leu/uL (Negative); Nitrite Negative (Negative); Protein, Urine (Dipstick) Negative (Neg-Trace); RBC/HPF 0-3 HPF (0-3); Specific Gravity, Urine 1.003 (1.002-1.036); Squamous Epithelial None Seen HPF (0-3); Urobilinogen Normal mg/dL (Less than 2); WBC/HPF None Seen HPF (0-3)
[2024-03-28 05:11] LABS: Amphetamine Not Detected (NotDetected); Barbiturates Screen Not Detected (NotDetected); Benzodiazepine Screen Not Detected (NotDetected); Cocaine Metabolite Screen Not Detected (NotDetected); Methadone Not Detected (NotDetected); Methamphetamine Not Detected (NotDetected); Opiate Screen Not Detected (NotDetected); Oxycodone Screen Not Detected (NotDetected); Phencyclidine (PCP) Not Detected (NotDetected); THC/Cannabinoid Screen Not Detected (NotDetected); Tricyclic Screen Not Detected (NotDetected)
[2024-03-28 05:13] LABS: Urine Culture Reflex No No
[2024-03-28 05:56] LABS: Acetaminophen Less than 10 mcg/mL (10.0-30.0); Alcohol 91.8 mg/dL (Less than 10); Salicylate Less than 8.0 mg/dL (15.0-30.0)
[2024-03-28] MEDS ORDERED: Ondansetron ODT 4 MG TAB SL PRN (07:00)
[2024-03-28] MEDS ORDERED: Ondansetron PF 4 MG/2 ML Vial IVP PRN (07:00)
[2024-03-28 07:20] LABS: Troponin I 0.112 ng/mL (< 0.028)
[2024-03-28] MEDS ORDERED: Lorazepam 1 MG TAB PO PRN (08:14)
[2024-03-28] MEDS ORDERED: Lorazepam 2 MG/ML VIAL IM PRN (08:14)
[2024-03-28] MEDS ORDERED: Electrolyte Replacement Protocol 1 EACH FS SCH (08:15)
[2024-03-28 08:46] LABS: Magnesium 1.7 mg/dL (1.6-2.6); Phosphorus 3.5 mg/dL (2.3-4.7)
[2024-03-28] MEDS ORDERED: Iopamidol-370 76% 500 ML MDV (1 ML CHARGE) ONE (08:56)
[2024-03-28] MEDS: Lorazepam 1 MG TAB PO SCH (09:38)
[2024-03-28] MEDS: Thiamine HCl 200 MG/2 ML VIAL SLOW IVP SCH (09:52)
[2024-03-28] MEDS: chlordiazePOXIDE HCl 25 MG CAP PO SCH (09:53)
[2024-03-28] MEDS: Folic Acid 1 MG TAB PO SCH (09:53)
[2024-03-28] MEDS: Enoxaparin 40 MG (0.4 mL) SYRINGE SC SCH (09:53)
[2024-03-28] MEDS: Multivit, Therapeutic 1 TAB PO SCH (09:53)
[2024-03-28] MEDS: Losartan 25 MG TAB PO SCH (09:53)
[2024-03-28] MEDS: Magnesium 2 GM/50 ML(in water) 2 GM in Premix 1 BAG IVPB SCH (10:08)
[2024-03-28 12:34] VITALS: BMI 22.2
[2024-03-29 04:57] LABS: #Basophils 0.04 10x3/uL (0.0-0.2); %Basophils 0.6 % (0.0-1.0); %Eosinophils 2.9 % (0.0-10.0); %Lymphocytes 21.7 % (21.0-51.0); %Monocytes 14.8 % (0.0-10.0); Hematocrit 41.6 % (42.0-52.0); Hemoglobin 13.9 g/dL (14.0-18.0); Mean Corpuscular HGB CONC 33.4 g/dL (32.0-36.0); Mean Corpuscular Hemoglobin 32.5 pg (27.0-31.0); Mean Corpuscular Volume 97.2 fL (78.0-98.0); Mean Platelet Volume 8.7 fL (7.4-10.4); Platelet Count 96 10x3/uL (130-400); RBC Distribution Width 17.3 % (11.5-14.5); Red Blood Cell (RBC) Count 4.28 mill/uL (4.70-6.10)
[2024-03-29 05:00] LABS: ALT (SGPT) 41 U/L (8-55); AST (SGOT) 94 U/L (5-34); Alkaline Phosphatase 166 U/L (40-110); Anion Gap 15 mmol/L (10-20); BUN (Urea Nitrogen) 10 mg/dL (8.4-25.7); Bilirubin, Total 2.5 mg/dL (0.2-1.2); Calc. Creatinine Clearance 96 mL/min (70-130); Calcium 9.2 mg/dL (7.8-10.44); Carbon Dioxide 21 mmol/L (22-29); Chloride 105 mmol/L (98-107); Estimated GFR 102; Globulin 4.9 g/dL (2.4-3.5); Glucose 90 mg/dL (70-105); Potassium 3.7 mmol/L (3.5-5.1); Protein, Total 7.9 g/dL (6.0-8.3); Sodium 137 mmol/L (136-145)
[2024-03-29] MEDS ORDERED: Lorazepam 1 MG TAB PO PRN (08:15)
[2024-03-29] MEDS: Atenolol 50 MG TAB PO SCH (10:57)
[2024-03-29] MEDS: Spironolactone 25 MG TAB PO SCH (10:57)
[2024-03-29 11:48] VITALS: BP 146/77; TEMP 98.9
[2024-03-30] MEDS ORDERED: Spironolactone 25 MG TAB PO SCH (08:00)
[2024-03-30] MEDS ORDERED: Lorazepam 0.5 MG TAB PO SCH (08:15)
[2024-03-30] MEDS ORDERED: Lorazepam 1 MG TAB PO PRN (08:15)
[2024-03-30] MEDS ORDERED: Atenolol 50 MG TAB PO SCH (09:00)
[2024-03-31] MEDS ORDERED: Lorazepam 0.5 MG TAB PO PRN (08:15)
[2024-03-31] MEDS ORDERED: Thiamine 100 MG TAB PO SCH (09:00)
== END 2024-03-29 12:50 | disposition left against medical advice (07) ==
LOC: EEVIPCON 00:56 → ERS 00:56 → EEVIPCON 06:50 → ERHOLD 06:50 → 2SW 09:32
PROVIDERS: ADMIT Family Medicine; ATTEND Family Medicine
DX: I16.1 Hypertensive emergency (principal); R79.89 Other specified abnormal findings of blood chemistry; E80.6 Other disorders of bilirubin metabolism; R74.01 Elevation of levels of liver transaminase levels; F41.9 Anxiety disorder, unspecified; F32.A Depression, unspecified; F10.120 Alcohol abuse with intoxication, uncomplicated; R25.1 Tremor, unspecified; F17.290 Nicotine dependence, other tobacco product, uncomplicated; Z88.8 Allergy status to other drugs, medicaments and biological substances; Z79.899 Other long term (current) drug therapy
CPT/HCPCS: 36415; 71045; 71275; 80053; 80306; 80307; 81001; 82550; 83690; 83735; 83880; 84100; 84443; 84484; 85025; 85379; 93005; 96361; 96372; 96374; 96375; 96376; G0378; J1650; J2060; J3411; J3475; Q9967

== ENCOUNTER 2024-10-14 13:00 | Emergency (ER) | payer OTHER, SELFPAY | END 2024-10-14 14:17 | disposition home or self-care (01) | LOC: ERS 13:00 | DX: J10.1 Influenza due to other identified influenza virus with other respiratory manifestations (principal); I10 Essential (primary) hypertension; E78.5 Hyperlipidemia, unspecified; F17.220 Nicotine dependence, chewing tobacco, uncomplicated; F17.290 Nicotine dependence, other tobacco product, uncomplicated | CPT/HCPCS: 87428; 99283 ==

== ENCOUNTER 2025-08-23 14:06 | Emergency (ER) | payer OTHER ==
[2025-08-23] MEDS ORDERED: cloNIDine 0.1 MG TAB ONE (15:15)
[2025-08-23] MEDS ORDERED: Atenolol 50 MG TAB PO SCH (15:30)
== END 2025-08-23 16:58 | disposition home or self-care (01) ==
LOC: ERS 14:06
DX: B34.9 Viral infection, unspecified (principal); I10 Essential (primary) hypertension; F17.220 Nicotine dependence, chewing tobacco, uncomplicated
CPT/HCPCS: 71045; 87081; 87428; 87430